=== PATIENT | male | born 1960 | race Caucasian/White ===

== ENCOUNTER 2023-09-24 10:50 | Outpatient (AMB) | payer MEDICARE, SELFPAY ==
--- NOTE | 2023-09-24 10:53 | HO.NEPHOV ---
HPI HPI Comments History of Present Illness Details Middle aged man with HTN and DM referred for CKD In Jun 2023, Cr was 1.4 and in Jul 2023 , cr was 1.38 No specific complaints today He has a h/o smoking in the past and has since quit [facility] Medical History (Updated 09/24/23 @ 11:14 by Yinka Bond MD) Hypertension High cholesterol Diabetes Family History Mother Diabetes Cancer Father Colon cancer Brother Diabetes Social History Alcohol intake: never Patient Tobacco Use Status: Never used Tobacco Vital Signs 09/24/23 10:54 Height 5 ft 7 in Weight 191 lb 6 oz BMI 30.0 BP 120/50 L Blood Pressure Location Lt brachial Position Sitting Pulse 58 Pulse Source Pulse Oximeter Pulse Oximetry (%) 98 Oxygen Delivery Method Room Air Physical Exam Vital Signs: Last Vital Signs Pulse 58 09/24/23 10:54 BP 120/50 L 09/24/23 10:54 Pulse Ox 98 09/24/23 10:54 Oxygen Delivery Method Room Air 09/24/23 10:54 BMI result Body Mass Index 30.0 Const General: comfortable Nutritional Appearance: well nourished Orientation/consciousness: patient oriented x3 HEENT Head: No normal to inspection Mouth: moist mucous membranes Neck Neck: Yes supple and Yes no JVD Resp Auscultation: clear to auscultation bilaterally, no rales and rub present Cardio Jugular venous distension: no JVD Palpation: no palpable S3 and no palpable S4 Heart sounds: no rubs GI Palpation (GI): Soft to palpation and nontender Percussion: No Fluid wave present General: Yes no CVA tenderness Back/Spine/Pelvis Back: no CVA tenderness Skin General skin exam: no rashes or lesions noted Neuro General: patient oriented x3 Extrem General: Yes no pedal edema and No clubbing Assessment & Plan Assessment & Plan (1) CKD (chronic kidney disease): Code(s): N18.9 - Chronic kidney disease, unspecified Plan Middle aged man with HTNa nd DM with CKD 3 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 Work up ordered including renal hollie=nogram and urine studies In the meantime, maintain BP< 130/80, And A1C < 7% Continue with ACEi Avoid nephrotoxins including NSAIDS Increase PO fluid intake May benefit from SGLT-2 inhibitors Orders: Orders UA and rflx microscopic Today N18.9 - Chronic kidney disease, unspecified Creatinine Urine Today N18.9 - Chronic kidney disease, unspecified Electrolytes Today N18.9 - Chronic kidney disease, unspecified Blood Urea Nitrogen Today N18.9 - Chronic kidney disease, unspecified Creatinine Today N18.9 - Chronic kidney disease, unspecified Calcium Today N18.9 - Chronic kidney disease, unspecified Total Protein Urine Random Today N18.9 - Chronic kidney disease, unspecified US renal BI Today N18.9 - Chronic kidney disease, unspecified Coding Level of Care Code New Pt Level 4 (76641) Diagnoses CKD (chronic kidney disease) N18.9 Results Reviewed Results Reviewed: Labd reviewed Nephrology Results: No Data to Display
[2023-09-24 10:54] VITALS: BP 120/50; PULSE 58; O2SAT 98
== END 2023-09-24 11:17 | disposition home or self-care (01) ==
PROVIDERS: PCP Psychiatry & Neurology Neurology; Visit Provider Internal Medicine Hypertension Specialist
DX: N18.9 Chronic kidney disease, unspecified (principal)
CPT/HCPCS: 99204

== ENCOUNTER → 2023-09-24 10:50 | Outpatient (BNVA) | payer MEDICARE, SELFPAY | PROVIDERS: PCP Psychiatry & Neurology Neurology; Visit Provider Internal Medicine Hypertension Specialist | DX: N18.9 Chronic kidney disease, unspecified (principal) | CPT/HCPCS: 99202 ==

== ENCOUNTER 2023-09-24 15:53 | Outpatient (REF) | payer MEDICARE, SELFPAY ==
[2023-09-24 18:12] LABS: Anion Gap 15 (12-20); Blood Urea Nitrogen 22 mg/dL (9-16); Calcium 9.6 mg/dL (8.4-10.2); Carbon Dioxide 25 mmol/L (22-29); Chloride 103 mmol/L (96-108); Estimated Glomerular Filt Rate 54; Potassium 4.4 mmol/L (3.3-5.1); Sodium 139 mmol/L (135-145)
[2023-09-24 18:18] LABS: Appearance Urine Clear; Color Urine Yellow; Glucose Urine UA Negative (Negative); Leukocyte Esterase Urine Negative (Negative); Nitrite Urine Negative (Negative); PH 5.5 (5.0-9.0); Specific Gravity - Urine 1.025 (1.005-1.025); Urine Blood Negative (Negative); Urine Ketones Negative (Negative); Urine Protein Negative (Neg-Trace)
[2023-09-24 19:07] LABS: Creatinine Urine 170.94 mg/dL; Total Protein Urine Random < 7 mg/dL (<12)
== END 2023-09-24 15:54 | disposition home or self-care (01) ==
LOC: HO.HKASLDS 15:53
PROVIDERS: Visit Provider Internal Medicine Hypertension Specialist
DX: N18.9 Chronic kidney disease, unspecified (principal)
CPT/HCPCS: 36415; 80051; 81003; 82310; 82565; 82570; 84156; 84520

== ENCOUNTER 2023-10-03 13:51 | Outpatient (REF) | payer MEDICARE, SELFPAY ==
--- NOTE | ~2023-10-03 | US_ITS ---
EXAMINATION: US RETROPERITONEAL LIMITED (RENAL ONLY) CLINICAL INFORMATION: Chronic kidney disease, unspecified. COMPARISON: None available. TECHNIQUE: Real-time imaging of the kidneys. Limited visualization due to bowel gas. FINDINGS: RIGHT KIDNEY: 11.1 x 5.0 x 5.6 cm (SAG x AP x TRV). No hydronephrosis. No renal calculi. Renal cortical thickness is normal. Limited visualization. LEFT KIDNEY: 11.1 x 6.3 x 5.3 cm (SAG x AP x TRV). No hydronephrosis. No renal calculi. Renal cortical thickness is normal. Limited visualization. US/US renal BI IMPRESSION: No hydronephrosis. No renal calculi.
== END 2023-10-03 13:52 | disposition home or self-care (01) ==
LOC: HO.HMGCX 13:51
PROVIDERS: PCP Internal Medicine; Visit Provider Internal Medicine Hypertension Specialist
DX: N18.9 Chronic kidney disease, unspecified (principal)
CPT/HCPCS: 76775

== ENCOUNTER 2023-10-15 11:07 | Outpatient (AMB) | payer MEDICARE, SELFPAY ==
[2023-10-15 11:12] VITALS: BP 138/62; PULSE 72; O2SAT 97
--- NOTE | 2023-10-15 11:12 | HO.NEPHOV_ITS ---
HPI HPI Comments History of Present Illness Details Middle aged man with HTN and DM referred for CKD In Jun 2023, Cr was 1.4 and in Jul 2023 , cr was 1.38 No specific complaints today He has a h/o smoking in the past and has since quit [facility] Medical History (Updated 09/24/23 @ 11:14 by Yinka Bond MD) Hypertension High cholesterol Diabetes Family History Mother Diabetes Cancer Father Colon cancer Brother Diabetes Social History Alcohol intake: never Patient Tobacco Use Status: Never used Tobacco Vital Signs 10/15/23 11:12 Height 57 ft Weight 191 lb 8 oz BMI 0.3 BP 138/62 Blood Pressure Location Lt brachial Position Sitting Pulse 72 Pulse Source Pulse Oximeter Pulse Oximetry (%) 97 Oxygen Delivery Method Room Air Physical Exam Vital Signs: Last Vital Signs Pulse 72 10/15/23 11:12 BP 138/62 10/15/23 11:12 Pulse Ox 97 10/15/23 11:12 Oxygen Delivery Method Room Air 10/15/23 11:12 BMI result Body Mass Index 0.3 Const General: comfortable Nutritional Appearance: well nourished Orientation/consciousness: patient oriented x3 HEENT Head: No normal to inspection Mouth: moist mucous membranes Neck Neck: Yes supple and Yes no JVD Resp Auscultation: clear to auscultation bilaterally, no rales and rub present Cardio Jugular venous distension: no JVD Palpation: no palpable S3 and no palpable S4 Heart sounds: no rubs GI Palpation (GI): Soft to palpation and nontender Percussion: No Fluid wave present General: Yes no CVA tenderness Back/Spine/Pelvis Back: no CVA tenderness Skin General skin exam: no rashes or lesions noted Neuro General: patient oriented x3 Extrem General: Yes no pedal edema and No clubbing Assessment & Plan Assessment & Plan (1) CKD (chronic kidney disease): Code(s): N18.9 - Chronic kidney disease, unspecified Plan Middle aged man with HTN and DM with CKD 3 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 No hydronephrosis. No renal calculi. Renal cortical thickness is normal. Limited visualization. LEFT KIDNEY: 11.1 x 6.3 x 5.3 cm (SAG x AP x TRV). No hydronephrosis. No renal calculi. Renal cortical thickness is normal. Limited visualization. US/US renal BI IMPRESSION: No hydronephrosis. No renal calculi. Nephrology Results: Sodium 139 mmol/L (135-145) 09/24/23 Potassium 4.4 mmol/L (3.3-5.1) 09/24/23 Chloride 103 mmol/L (96-108) 09/24/23 Carbon Dioxide 25 mmol/L (22-29) 09/24/23 BUN 22 mg/dL (9-16) H 09/24/23 Creatinine 1.32 mg/dL (0.5-1.4) 09/24/23 Calcium 9.6 mg/dL (8.4-10.2) 09/24/23 Urine Protein Negative mg/dL (Neg-Trace) 09/24/23 Urine Creatinine 170.94 mg/dL 09/24/23 Renal US 10/03/23
== END 2023-10-15 11:34 | disposition home or self-care (01) ==
PROVIDERS: PCP Internal Medicine; Visit Provider Internal Medicine Hypertension Specialist
DX: N18.9 Chronic kidney disease, unspecified (principal)
CPT/HCPCS: 99214

== ENCOUNTER → 2023-10-15 11:07 | Outpatient (BNVA) | payer MEDICARE, SELFPAY | PROVIDERS: PCP Internal Medicine; Visit Provider Internal Medicine Hypertension Specialist | DX: I12.9 Hypertensive chronic kidney disease with stage 1 through stage 4 chronic kidney disease, or unspecified chronic kidney disease (principal); E11.22 Type 2 diabetes mellitus with diabetic chronic kidney disease; N18.30 Chronic kidney disease, stage 3 unspecified | CPT/HCPCS: 99212 ==

== ENCOUNTER 2024-03-03 11:30 | Outpatient (AMB) | payer MEDICARE, SELFPAY ==
[2024-03-03 11:32] VITALS: BP 106/52; PULSE 66; O2SAT 97; BMI 26.9
--- NOTE | 2024-03-03 11:32 | HO.NEPHOV_ITS ---
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 Required: No Accompanied by: Self / Same As Patient Allergies No Known Allergies Allergy (Verified 03/03/24 11:34) Medication List - Last Reconciled 03/03/24 by iYnka Bond MD atorvastatin 40 mg PO DAILY bimatoprost 0.01% (Lumigan) drps ophthalmic (eye) budesonide-formoterol 160-4.5 mcg/actuation (Symbicort) 2 puffs inhalation BID famotidine 40 mg PO DAILY lisinopril-hydrochlorothiazide 20-25 mg 1 tab PO DAILY metformin 1,000 mg PO BID metoprolol succinate ER 25 mg PO DAILY pantoprazole 40 mg PO DAILY semaglutide (Ozempic) mg subcut tamsulosin 0.8 mg PO DAILY HPI Comments Details: Middle aged man with HTN and DM referred for CKD In Jun 2023, Cr was 1.4 and in Jul 2023 , cr was 1.38 No specific complaints today He has a h/o smoking in the past and has since quit 02/21/24 Off Glburide Now on Ozempic Lost 19 pounds Feels dizzy when he stands [facility] Medical History (Updated 09/24/23 @ 11:14 by Yinka Bond MD) Hypertension High cholesterol Diabetes Family History Mother Diabetes Cancer Father Colon cancer Brother Diabetes Social History Alcohol intake: never Patient Tobacco Use Status: Never used Tobacco Physical Exam Vital Signs: Last Vital Signs Pulse 66 03/03/24 11:32 BP 90/60 03/03/24 11:48 Pulse Ox 97 03/03/24 11:32 Oxygen Delivery Method Room Air 03/03/24 11:32 BMI result Body Mass Index 26.9 Const General: comfortable Nutritional Appearance: well nourished Orientation/consciousness: patient oriented x3 HEENT Head: No normal to inspection Mouth: moist mucous membranes Neck Neck: Yes supple and Yes no JVD Resp Auscultation: clear to auscultation bilaterally and no rales Cardio Jugular venous distension: no JVD Palpation: no palpable S3 and no palpable S4 Heart sounds: no rubs GI Palpation (GI): Soft to palpation and nontender Percussion: No Fluid wave present General: Yes no CVA tenderness Back/Spine/Pelvis Back: no CVA tenderness Skin General skin exam: no rashes or lesions noted Neuro General: patient oriented x3 Extrem General: Yes no pedal edema and No clubbing Results Reviewed Nephrology Results: Sodium 139 mmol/L (135-145) 09/24/23 Potassium 4.4 mmol/L (3.3-5.1) 09/24/23 Chloride 103 mmol/L (96-108) 09/24/23 Carbon Dioxide 25 mmol/L (22-29) 09/24/23 BUN 22 mg/dL (9-16) H 09/24/23 Creatinine 1.32 mg/dL (0.5-1.4) 09/24/23 Calcium 9.6 mg/dL (8.4-10.2) 09/24/23 Urine Protein Negative mg/dL (Neg-Trace) 09/24/23 Urine Creatinine 170.94 mg/dL 09/24/23 Renal US 10/03/23 Assessment & Plan Assessment & Plan (1) CKD (chronic kidney disease): Code(s): N18.9 - Chronic kidney disease, unspecified Category: Medical Plan Middle aged man with HTN and DM with CKD 3 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
[2024-03-03 11:48] VITALS: BP 90/60
== END 2024-03-03 11:53 | disposition home or self-care (01) ==
PROVIDERS: PCP Internal Medicine; Visit Provider Internal Medicine Hypertension Specialist
DX: N18.9 Chronic kidney disease, unspecified (principal)
CPT/HCPCS: 99214

== ENCOUNTER → 2024-03-03 11:30 | Outpatient (BNVA) | payer MEDICARE, SELFPAY | PROVIDERS: PCP Internal Medicine; Visit Provider Internal Medicine Hypertension Specialist | DX: N18.9 Chronic kidney disease, unspecified (principal) | CPT/HCPCS: 99212 ==

== ENCOUNTER 2024-06-09 10:43 | Outpatient (REF) | payer MEDICARE, SELFPAY ==
[2024-06-09 14:56] LABS: Appearance Urine Clear; Color Urine Yellow; Glucose Urine UA Negative (Negative); Leukocyte Esterase Urine Negative (Negative); Nitrite Urine Negative (Negative); PH 5.5 (5.0-9.0); Urine Blood Negative (Negative); Urine Ketones Negative (Negative); Urine Protein Negative (Neg-Trace)
[2024-06-09 16:18] LABS: Anion Gap 12 (12-20); Blood Urea Nitrogen 17 mg/dL (9-16); Calcium 9.3 mg/dL (8.4-10.2); Carbon Dioxide 30 mmol/L (22-29); Chloride 103 mmol/L (96-108); Estimated Glomerular Filt Rate > 60; Glucose Random 123 mg/dL (60-115); Sodium 141 mmol/L (135-145)
[2024-06-09 16:30] LABS: Creatinine Urine 139.04 mg/dL; Total Protein Urine Random < 7 mg/dL (<12)
== END 2024-06-09 10:44 | disposition home or self-care (01) ==
LOC: HO.HKASLDS 10:43
PROVIDERS: Visit Provider Internal Medicine Hypertension Specialist
DX: I10 Essential (primary) hypertension (principal); N18.9 Chronic kidney disease, unspecified
CPT/HCPCS: 36415; 80048; 81003; 82570; 84156

== ENCOUNTER 2024-06-16 11:14 | Outpatient (AMB) | payer MEDICARE, SELFPAY ==
[2024-06-16 11:13] VITALS: BP 132/52; PULSE 64; O2SAT 97; BMI 27.1
--- NOTE | 2024-06-16 11:13 | HO.NEPHOV ---
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 Required: No Accompanied by: Self / Same As Patient Allergies No Known Allergies Allergy (Verified 07/01/24 11:39) Medication List - Last Reconciled 06/16/24 by Yinka Bond MD atorvastatin 40 mg PO DAILY bimatoprost 0.01% (Lumigan) drps ophthalmic (eye) budesonide-formoterol 160-4.5 mcg/actuation (Symbicort) 2 puffs inhalation BID famotidine 40 mg PO DAILY lisinopril 20 mg PO DAILY metformin 1,000 mg PO BID metoprolol succinate ER 25 mg PO DAILY pantoprazole 40 mg PO DAILY semaglutide (Ozempic) mg subcut tamsulosin 0.8 mg PO DAILY HPI Comments Details: Middle aged man with HTN and DM referred for CKD In Jun 2023, Cr was 1.4 and in Jul 2023 , cr was 1.38 No specific complaints today He has a h/o smoking in the past and has since quit 02/21/24 Off Glburide Now on Ozempic Lost 19 pounds Feels dizzy when he stands [facility] Medical History (Updated 06/17/24 @ 10:35 by Alisa Coombs MD) Dry mouth, unspecified Hypertension High cholesterol Diabetes Family History Mother Diabetes Cancer Father Colon cancer Brother Diabetes Social History Alcohol intake: never Patient Tobacco Use Status: Never used Tobacco Physical Exam Vital Signs: Last Vital Signs Pulse 64 06/16/24 11:13 BP 120/60 06/16/24 11:23 Pulse Ox 97 06/16/24 11:13 Oxygen Delivery Method Room Air 06/16/24 11:13 BMI result Body Mass Index 27.1 Results Reviewed Nephrology Results: Hgb 14.8 g/dl (14.0-18.0) 06/17/24 WBC 9.2 X10*3/uL (4.8-10.8) 06/17/24 Plt Count 255 X10*3/uL (160-400) 06/17/24 Sodium 142 mmol/L (135-145) 06/17/24 Potassium 4.5 mmol/L (3.3-5.1) 06/17/24 Chloride 105 mmol/L (96-108) 06/17/24 Carbon Dioxide 29 mmol/L (22-29) 06/17/24 BUN 14 mg/dL (9-16) 06/17/24 Creatinine 1.07 mg/dL (0.5-1.4) 06/17/24 Calcium 10.0 mg/dL (8.4-10.2) 06/17/24 Urine Protein Negative mg/dL (Neg-Trace) 06/09/24 Urine Creatinine 139.04 mg/dL 06/09/24 Renal US 10/03/23 Assessment & Plan Assessment & Plan (1) CKD (chronic kidney disease): Code(s): N18.9 - Chronic kidney disease, unspecified Category: Medical Plan Middle aged man with HTN and DM with CKD 3 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
[2024-06-16 11:23] VITALS: BP 120/60
== END 2024-06-16 11:31 | disposition home or self-care (01) ==
PROVIDERS: PCP Internal Medicine; Visit Provider Internal Medicine Hypertension Specialist
DX: N18.9 Chronic kidney disease, unspecified (principal)
CPT/HCPCS: 99214

== ENCOUNTER → 2024-06-16 11:14 | Outpatient (BNVA) | payer MEDICARE, SELFPAY | PROVIDERS: PCP Internal Medicine; Visit Provider Internal Medicine Hypertension Specialist | DX: E11.22 Type 2 diabetes mellitus with diabetic chronic kidney disease (principal); I12.9 Hypertensive chronic kidney disease with stage 1 through stage 4 chronic kidney disease, or unspecified chronic kidney disease; N18.30 Chronic kidney disease, stage 3 unspecified; Z87.891 Personal history of nicotine dependence | CPT/HCPCS: 99212 ==

== ENCOUNTER 2024-06-17 09:55 | Outpatient (REF) | payer MEDICARE, SELFPAY ==
[2024-06-17 11:09] LABS: MANUAL DIFF FLAG NO
[2024-06-17 12:00] LABS: Basophils Percent Auto 0.3 % (0-2); Eosinophils Absolute Auto 0.9 X10*3/uL (0.0-0.4); Eosinophils Percent Auto 9.3 % (0-4); Hematocrit 43.3 % (42.0-52.0); Hemoglobin 14.8 g/dl (14.0-18.0); Imm Gran Abs Auto 0.03 X10*3/uL (0.00-0.03); Imm Gran Pct Auto 0.3 % (0.0-0.4); Lymphocytes Absolute Auto 2.4 X10*3/uL (1.2-4.9); Lymphocytes Percent Auto 26.5 % (20-40); Mean Corpuscular HGB Conc 34.2 g/dl (31.0-36.0); Mean Corpuscular Hemoglobin 31.1 pg (27.0-33.0); Mean Platelet Volume 9.8 fL (9.4-12.4); Monocytes Absolute Auto 0.6 X10*3/uL (0.1-1.2); Monocytes Percent Auto 6.1 % (2-11); Neutrophils Absolute Auto 5.3 x10*3/uL (2.0-8.3); Neutrophils Percent Auto 57.5 % (45-73); Platelet Count 255 X10*3/uL (160-400); Red Blood Count 4.76 X10*6/uL (4.60-5.80); Red Cell Distribution Width 12.1 % (11.0-16.0); White Blood Count 9.2 X10*3/uL (4.8-10.8)
[2024-06-17 12:27] LABS: Rheumatoid Factor < 13.0 IU/mL (<15.0)
[2024-06-17 12:33] LABS: Alanine Aminotransferase 15 U/L (0-40); Albumin Level 4.5 g/dL (3.5-5.0); Alkaline Phosphatase 75 U/L (39-117); Anion Gap 13 (12-20); Aspartate Amino Transferase 13 U/L (5-37); Bilirubin Total 0.6 mg/dL (0.0-1.0); Blood Urea Nitrogen 14 mg/dL (9-16); C Reactive Protein < 0.04 mg/dL (< or = 0.50); Carbon Dioxide 29 mmol/L (22-29); Chloride 105 mmol/L (96-108); Estimated Glomerular Filt Rate > 60; Glucose Random 85 mg/dL (60-115); Potassium 4.5 mmol/L (3.3-5.1); Sodium 142 mmol/L (135-145); Total Protein 7.3 g/dL (6.5-8.0)
[2024-06-17 12:45] LABS: Erythrocyte Sedimentation Rate 2 MM/HR (0-15)
[2024-06-18 11:24] LABS: Complement C3 136 mg/dL (82-185)
[2024-06-22 07:14] LABS: Antibody to SS-A Antigen <1.0 NEG AI (<1.0 NEG); Antibody to SS-B Antigen <1.0 NEG AI (<1.0 NEG)
[2024-06-22 08:14] LABS: Anti Nuclear Antibody Screen NEGATIVE (NEGATIVE)
== END 2024-06-17 09:56 | disposition home or self-care (01) ==
LOC: HO.LAB 09:55
PROVIDERS: PCP Internal Medicine; Visit Provider Student in an Organized Health Care Education/Training Program
DX: R68.2 Dry mouth, unspecified (principal); I12.9 Hypertensive chronic kidney disease with stage 1 through stage 4 chronic kidney disease, or unspecified chronic kidney disease; N18.9 Chronic kidney disease, unspecified
CPT/HCPCS: 36415; 80053; 85025; 85652; 86038; 86140; 86160; 86235; 86431; 99202

== ENCOUNTER 2024-06-17 09:55 | Outpatient (AMB) | payer MEDICARE, SELFPAY ==
[2024-06-17 10:06] VITALS: BP 120/60; PULSE 71; O2SAT 100; BMI 26.9
--- NOTE | 2024-06-17 10:06 | A.OFFVIS_ITS ---
Vital Signs 06/17/24 10:06 Height 5 ft 7 in Weight 172 lb BMI 26.9 BP 120/60 Blood Pressure Location Lt brachial Position Sitting Pulse 71 Pulse Source Pulse Oximeter Pulse Oximetry (%) 100 Oxygen Delivery Method Room Air Intake Visit Reasons: dry mouth Allergies No Known Allergies Allergy (Verified 06/16/24 11:15) Medication List - Last Reconciled 06/17/24 by Alisa Coombs MD atorvastatin 40 mg PO DAILY bimatoprost 0.01% (Lumigan) drps ophthalmic (eye) budesonide-formoterol 160-4.5 mcg/actuation (Symbicort) 2 puffs inhalation BID famotidine 40 mg PO DAILY lisinopril 20 mg PO DAILY metformin 1,000 mg PO BID metoprolol succinate ER 25 mg PO DAILY pantoprazole 40 mg PO DAILY semaglutide (Ozempic) mg subcut tamsulosin 0.8 mg PO DAILY HPI Comments Details: Patient is a 64-year-old gentleman with controlled type 2 diabetes (last A1c 6.2 as per patient), hypertension, hyperlipidemia, coronary artery disease, psoriasis and GERD on 2 acid suppressants. He presents for evaluation of dry mouth and dry eyes. Patient states that he has been noticing dry mouth more so than dry eyes for the past 2 years. He particularly notes this when he wakes up in the middle of the night and his mouth feels dry and has a sour taste, he also notices this when he is doing a lot of talking and he feels like he has to drink more water and normal. He denies any difficulty with eating dry food were dry crackers. With respect to his eyes he denies grainy sensation, inability to make tears. Denies history of facial swelling or lymphadenopathy. Denies history of joint pain or stiffness to hands. Denies oral/nasal ulcers, alopecia, Raynaud's. No family history of any autoimmune disease. REPLACED BY [facility] Medical History (Updated 06/17/24 @ 10:35 by Alisa Coombs MD) Dry mouth, unspecified Hypertension High cholesterol Diabetes Family History Mother Diabetes Cancer Father Colon cancer Brother Diabetes Social History Alcohol intake: never Patient Tobacco Use Status: Never used Tobacco Review of Systems Const Details: Review of Systems Constitutional: Denies fever, chills, weight loss ENT: Dry eyes and dry mouth GI: Denies nausea, vomiting, diarrhea, abdominal pain, change in BM Pulm: Denies SOB, EDWARDS, hemoptysis, wheezing Cards: Denies chest pain, palpitations Skin: Denies Raynaud's, rash, nail changes, photosensitivity, 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 ?Gait normal. Constitutional: ?Mucous membranes pink and moist patient alert and cooperative. HEENT: ?Conjunctiva and sclera clear. ?Pupils equal round and reactive to light. ?No lymphadenopathy. Adequate salivary pool noted. No excessive dental caries. Resp: ?Normal respiratory effort and able to speak in complete sentences. ?Clear to auscultation bilaterally. ?No crackles, rales, rhonchi, wheezes heard. Cards: ?Regular rate and rhythm. ?S1 and S2 heard no murmurs. ?Radial pulses intact bilaterally MSK: ?No deformity, swelling, abnormalities noted to bilateral hands. ?No evidence of synovitis. ?Heberden's nodes noted to bilateral hands at the PIP throughout. Able to move all joints with full range of motion, without weber itation. Results Reviewed Results Reviewed: Results reviewed. Laboratory Tests 06/09/24 10:40 Sodium 141 Potassium 4.0 Chloride 103 Carbon Dioxide 30 H BUN 17 H Creatinine 1.07 Assessment & Plan Assessment & Plan (1) Dry mouth, unspecified: Code(s): R68.2 - Dry mouth, unspecified Category: Medical Plan: #Dry eyes and Dry mouth Patient presenting with dry eyes and dry mouth for evaluation of Sjogren's syndrome. His main complaint is his dry mouth. The dry mouth seems to be mostly at night and when he talks during the day. Low suspicion for Sjogren's disease at this time given his good salivary pool, lack of parotid swelling, lack of features of extraglandular Sjogren's, normal tongue architecture, adequate dentition. We will still check labs including MAGNUS, SSA/SSB, complement, rheumatoid factor. I discussed with him other causes of his dry mouth which can include medications such as antihistamines (which he can get over the counter including Benadryl and the cough and cold preparations), famotidine, GERD itself can cause dry mouth and bitter taste in the mouth due to the acid production, psoriasis can be associated with dry mouth, diabetes can also be associated with a dry mouth although this is usually an uncontrolled diabetes. We will not pursue salivary gland biopsy at this time given low suspicion Plan I spent [35] minutes reviewing the record and labs, seeing the patient, discussing the treatment plan and documenting in the medical record Orders: Orders Complement C4 Today I10 - Essential (primary) hypertension, N18.9 - Chronic kidney disease, unspecified, R68.2 - Dry mouth, unspecified Rheumatoid Factor Today I10 - Essential (primary) hypertension, N18.9 - Chronic kidney disease, unspecified, R68.2 - Dry mouth, unspecified C Reactive Protein Today I10 - Essential (primary) hypertension, N18.9 - Chr onic kidney disease, unspecified, R68.2 - Dry mouth, unspecified MAGNUS Reflex Titer and Pattern Today R68.2 - Dry mouth, unspecified Sjogren's Antibodies Today R68.2 - Dry mouth, unspecified Complement C3 Today I10 - Essential (primary) hypertension, N18.9 - Chronic kidney disease, unspecified, R68.2 - Dry mouth, unspecified Erythrocyte Sedimentation Rate Today I10 - Essential (primary) hypertension, N18.9 - Chronic kidney disease, unspecified, R68.2 - Dry mouth, unspecified Complete Blood Count Auto Diff Today I10 - Essential (primary) hypertension, N18.9 - Chronic kidney disease, unspecified, R68.2 - Dry mouth, unspecified Comprehensive Met. Panel Today I10 - Essential (primary) hypertension, N18.9 - Chronic kidney disease, unspecified, R68.2 - Dry mouth, unspecified Coding Level of Care Code New Pt Level 3 (43357) Diagnoses Dry mouth, unspecified R68.2
== END 2024-06-17 10:42 | disposition home or self-care (01) ==
PROVIDERS: PCP Internal Medicine; Visit Provider Student in an Organized Health Care Education/Training Program
DX: R68.2 Dry mouth, unspecified (principal)
CPT/HCPCS: 99203

== ENCOUNTER 2024-07-01 11:25 | Outpatient (AMB) | payer MEDICARE, SELFPAY ==
[2024-07-01 11:38] VITALS: BP 120/58; PULSE 67; O2SAT 98; BMI 26.8
--- NOTE | 2024-07-01 11:38 | A.OFFVIS_ITS ---
Vital Signs 07/01/24 11:38 Height 5 ft 7 in Weight 171 lb 1.259 oz BMI 26.8 BP 120/58 L Blood Pressure Location Lt brachial Position Sitting Pulse 67 Pulse Source Pulse Oximeter Pulse Oximetry (%) 98 Oxygen Delivery Method Room Air Intake Visit Reasons: follow up labs and dry mouth/cm Intake Note: Patient presents today for follow up on labs and dry mouth. He was last seen on 06/17/[address] Coombs. Allergies No Known Allergies Allergy (Verified 07/01/24 11:39) Medication List - Last Reconciled 07/01/24 by Alisa Coombs MD atorvastatin 40 mg PO DAILY bimatoprost 0.01% (Lumigan) drps ophthalmic (eye) budesonide-formoterol 160-4.5 mcg/actuation (Symbicort) 2 puffs inhalation BID famotidine 40 mg PO DAILY lisinopril 20 mg PO DAILY metformin 1,000 mg PO BID metoprolol succinate ER 25 mg PO DAILY pantoprazole 40 mg PO DAILY semaglutide (Ozempic) mg subcut tamsulosin 0.8 mg PO DAILY HPI Comments Details: Patient is a 64-year-old gentleman with controlled type 2 diabetes (last A1c 6.2 as per patient), hypertension, hyperlipidemia, coronary artery disease, psoriasis and GERD on 2 acid suppressants. He presents for follow up of his evaluation of dry eyes and dry mouth. Interval History: Patient established care 06/17/2024. Complaining of dry mouth for the past 2 years. Particularly at night when he wakes up. At that evaluation there were no signs or symptoms consistent with Sjogren's syndrome. However serologies were checked. The serologies were negative. I recommended using sour candies to help with increasing saliva production. Today patient is the same. Rheumatologic History: Presents for evaluation of dry eyes and dry mouth. Mainly dry mouth. 06/17/2024. Serology testing negative. Low suspicion for Sjogren's syndrome. Current Rheumatology Medication(s): - FOR[facility]LY [facility], [facility] Medical History (Updated 06/17/24 @ 10:35 by Alisa Coombs MD) Dry mouth, unspecified Hypertension High cholesterol Diabetes Family History Mother Diabetes Cancer Father Colon cancer Brother Diabetes Social History Alcohol intake: never Patient Tobacco Use Status: Never used Tobacco Review of Systems Const Details: Review of Systems Constitutional: Denies fever, chills, weight loss ENT: Denies vision changes, eye pain or eye redness, dental caries GI: Denies nausea, vomiting, diarrhea, abdominal pain, change in BM Pulm: Denies SOB, EDWARDS, hemoptysis, wheezing Cards: Denies chest pain, palpitations Skin: Denies Raynaud's, rash, nail changes, photosensitivity, MEDICAL ASSISTANT CARDIOLOGY: Denies headaches, weakness, paresthesias, recurrent falls MSK: as per HPI All other systems reviewed and are unremarkable except noted above Physical Exam Vital Signs: Last Vital Signs Pulse 67 07/01/24 11:38 BP 120/58 L 07/01/24 11:38 Pulse Ox 98 07/01/24 11:38 Oxygen Delivery Method Room Air 07/01/24 11:38 BMI result Body Mass Index 26.8 Physical Examination Patient well appearing and in no apparent painful distress Able to rise from chair without support. ?Gait normal. Constitutional Mucous membranes pink and moist patient alert and cooperative HEENT Conjunctiva and sclera clear. ?Pupils equal round and reactive to light. ?No lymphadenopathy. ?Normal dentition. Respiratory System Normal respiratory effort and able to speak in complete sentences. ?Clear to auscultation bilaterally. ?No crackles, rales, rhonchi, wheezes heard. Cardiac System Regular rate and rhythm. ?S1 and S2 heard no murmurs. ?Radial pulses intact bilaterally MSK No deformity, swelling, abnormalities noted to bilateral hands. ?No evidence of synovitis. ?Able to move all joints with full range of motion, without limitation. Hands:.??Normal pain-free range of motion without tenderness, swelling, increased warmth or erythema. Able to make a full fist and has a good corner trimmer operator strength. Wrists: Normal pain-free range of motion without tenderness, swelling, increased warmth or erythema. Elbows: Full range of motion without pain. No tenderness, weakness, swelling, increased warmth or erythema. Shoulders: Full range of motion without pain. No tenderness, weakness, swelling, increased warmth or erythema. Hips: Full range of motion without pain. Hip bursa:.??No tenderness. Knees:.???Normal pain-free range of motion without tenderness, swelling, increased warmth or erythema.??There is no effusion or crepitation. tenderness to right lateral, area of fibia head Ankles:.??Normal pain-free range of motion without tenderness, swelling, increased warmth or erythema. Feet:.??Normal pain-free range of motion without tenderness, swelling, increased warmth or erythema. Tender points:??No tenderness to digital palpation at the occiput, trapezius, second rib, lateral epicondyle, knees, greater trochanter bilaterally, and left gluteal. Results Reviewed Results Reviewed: Laboratory Tests 06/09/24 06/17/24 10:40 11:00 WBC 9.2 RBC 4.76 Hgb 14.8 Hct 43.3 Plt Count 255 ESR 2 Sodium 141 142 Potassium 4.0 4.5 Chloride 103 105 Carbon Dioxide 30 H 29 BUN 17 H 14 Creatinine 1.07 1.07 C-Reactive Protein < 0.04 Rheumatoid Factor < 13.0 MAGNUS Screen NEGATIVE SS-A/Ro Antibody <1.0 NEG SS-B/La Antibody <1.0 NEG Complement C3 136 Complement C4 27 Assessment & Plan Assessment & Plan (1) Dry mouth, unspecified: Code(s): R68.2 - Dry mouth, unspecified Category: Medical Plan: #Dry eyes and Dry mouth Patient presenting with dry eyes and dry mouth for evaluation of Sjogren's syndrome. His main complaint is his dry mouth. The dry mouth seems to be mostly at night and when he talks during the day. Low suspicion for Sjogren's disease at this time given his good salivary pool, lack of parotid swelling, lac k of features of extraglandular Sjogren's, normal tongue architecture, adequate dentition. Labs including MAGNUS, SSA/SSB, complement, RF were negative. I discussed with him other causes of his dry mouth which can include medications such as antihistamines (which he can get over the counter including Benadryl and the cough and cold preparations), famotidine, GERD itself can cause dry mouth and bitter taste in the mouth due to the acid production, psoriasis can be associated with dry mouth, diabetes can also be associated with a dry mouth although this is usually an uncontrolled diabetes. We will not pursue salivary gland biopsy at this time given low suspicion Plan I spent 15 minutes reviewing the record and labs, seeing the patient, discussing the treatment plan and documenting in the medical record Coding Level of Care Code Est Pt Level 2 (67753) Diagnoses Dry mouth, unspecified R68.2
== END 2024-07-01 12:36 | disposition home or self-care (01) ==
PROVIDERS: PCP Internal Medicine; Visit Provider Student in an Organized Health Care Education/Training Program
DX: R68.2 Dry mouth, unspecified (principal)
CPT/HCPCS: 99212

== ENCOUNTER → 2024-07-01 11:25 | Outpatient (BNVA) | payer MEDICARE, SELFPAY | PROVIDERS: PCP Internal Medicine; Visit Provider Student in an Organized Health Care Education/Training Program | DX: R68.2 Dry mouth, unspecified (principal); K21.9 Gastro-esophageal reflux disease without esophagitis; Z79.899 Other long term (current) drug therapy | CPT/HCPCS: 99212 ==

== ENCOUNTER 2024-09-28 10:33 | Outpatient (REF) | payer MEDICARE, SELFPAY ==
--- OUTSIDE RECORDS SUMMARY | 2024-09-28 12:19 | XMS_ITS ---
Author Organization [facility], Address [address] [place] [address] Care Team Providers Care Granulating Blender Name Role Phone Genny Gray [phone] ALLERGIES, ADVERSE REACTIONS, ALERTS Substance Code Code System Type Reaction Severity Status Start Date End Date No known drug allergies RxNorm Other substance allergy () 1 No known allergies RxNorm Other substance allergy () 1 No known non-drug allergies RxNorm Other substance luis rgy () 1 MEDICATIONS Medication Code Code System Start Date Stop Date Route Dosage Directions Fill Instructions glipizide RxNorm 2 GLYBURIDE 5 MG TABLET RxNorm 3 METOPROLOL ER 25MG TAB RxNorm 11/19/2022 1 VENTOLIN HFA AER RxNorm 3 2 atorvastatin RxNorm 2 metformin RxNorm 2 prednisone 746800 RxNorm 2 oral 5 azithromycin 548062 RxNorm 04/21/2023 oral 1 azithromycin 459171 RxNorm 09/17/2023 oral 1 benzonatate 162463 RxNorm 09/17/2023 oral 1 lisinopril RxNorm 2 prednisone 375934 RxNorm 2 09/29/19 22 oral 2 prednisone 251351 RxNorm 04/21/2023 oral 2 PROBLEMS Problem Name Code Code System Start Date End Date Stat us Diabetes, Type 2 54831556 [facility] 09/24/2021 Act heather Hypertension 08138139 [facility] 09/24/2021 Active Hyperlipidemia 43997186 [facility] 09/24/2021 Activ e Idiopathic urticaria 70481738 [facility] 09/24/2021 Inactive Rash, nonspecific skin eruption 825489671 [facility] 2 Inactive Emphysema, unspecified 31455698 [facility] Active Acute cough 50270940 [facility] 09/17/2023 Active ENCOUNTERS Encounter Diagnosis Code Code System Date Stat us Emphysema, unspecified 39775034 [facility] 09/17/2023 Ac tive Acute cough 62690092 [facility] 09/17/2023 Active IMMUNIZATIONS Vaccine Code Code System Vaccine Name Date Status Lot Number Construction Electrician Name Additional Notes CVX [id number] 09/24/19 22 Completed [id number] [employer] VITAL SIGNS Code Code System Vitals Name Date Value and Un its 8462-4 [facility] Blood Pressure-Diastolic 09/17/2023 74 mmHg 8480-6 [facility] Blood Pressure-Systolic 09/17/2023 1 34 mmHg 8867-4 [facility] Heart Rate 09/17/2023 71 /min 9279-1 Loinc Respiratory Rate 09/17/2023 12 /min 8310-5 Loinc Body Temperature 09/17/2023 98.3 F 23290-0 [facility] Oxygen Saturation 09/17/2023 97 % SOCIAL HISTORY * None PROCEDURES * None MEDICAL EQUIPMENT * Patient has no history of implantable devices ASSESSMENT Assessment Take the antibiotic as presc ribed.Take the cough medication as prescribed.Use your albuterol inhaler 2 puffs every 4-6 hours as needed for cough/wheezing.I would recommend using [id number]-[id number] [place] mist nasal saline to irrigate the nose and sinuses.Warm tea with honey can be helpful.If there is any abnormality seen on the x-ray that requires changes in treatment we will contact you within the next few hours.Please arrange follow-up with your primary care doctor if symptoms do not improve/resolve.If symptoms worsen or you develop a fever please be reevaluated immediately or go to the emergency room TREATMENT PLAN Type Description Date MEDICATION Take 09/17/2023 MEDICATION Take 09/17/2023 APPOINTMENT If not feeling krzysztof r in 3 day(s), please see your primary care physician. If you do not have a primary care physician, please return to this clinic. 09/17/2023 Lab Tests None GOALS * None HEALTH CONCERNS * No Health Concerns FUNCTIONAL AND COGNITIVE STATUS * None CONSULTATION NOTES * None DISCHARGE SUMMARY NOTES * None HISTORY AND PHYSICAL NOTES * None IMAGING NOTES * /Eastern History: Cough-Chest: The patient presents with a chief complaint of cough of the chest since 2 weeks ago. It has the following quality: productive of sputum. The patient also reports congestion as an abnormal symptom related to the complaint.FRONTAL AND LATERAL CXRREFERENCES: DX - CHEST 2 VIEWS, FRONTAL/LATERAL - 04/21/23 14:34 EDT FINDINGS:Cardiac and mediastinal contours are within expected limits. The thoracic aorta is atherosclerotic and tortuous. There is suggestion of bilateral perihilar fullness with minimal peribronchial thickening. No confluent airspace opacities are identified. No pleural effusions. No pneumothorax.Multilevel thoracic spondylosis. IMPRESSION:Findings suggestive of reactive airways. LABORATORY REPORT NARRATIVE NOTES * None PATHOLOGY REPORT NARRATIVE NOTES * None PROGRESS NOTES * None
--- OUTSIDE RECORDS SUMMARY | 2024-09-28 12:19 | XMS_ITS ---
Author Organization [facility] Address [address] [place] [address] Care Team Providers Care Pharmacy Cashier Name Role Phone Radha Baron Unavailable [phone] ALLERGIES, ADVERSE REACTIONS, ALERTS Substance Code Code System Type Reaction Severity Status Start Date End Date No known drug allergies RxNorm Other substance allergy () 1 No known non-drug allergies RxNorm Other substance luis rgy () 1 No known allergies RxNorm Other substance allergy () 1 MEDICATIONS Medication Code Code System Start Date Stop Date Route Dosage Directions Fill Instructions glipizide RxNorm 2 GLYBURIDE 5 MG TABLET RxNorm 3 METOPROLOL ER 25MG TAB RxNorm 11/19/2022 1 VENTOLIN HFA AER RxNorm 3 2 atorvastatin RxNorm 2 metformin RxNorm 2 prednisone 978649 RxNorm 2 oral 5 azithromycin 819317 RxNorm 04/21/2023 oral 1 azithromycin 292070 RxNorm 09/17/2023 oral 1 benzonatate 672343 RxNorm 09/17/2023 oral 1 lisinopril RxNorm 2 prednisone 528651 RxNorm 2 09/29/19 22 oral 2 prednisone 821909 RxNorm 04/21/2023 oral 2 PROBLEMS Problem Name Code Code System Start Date End Date Stat us Diabetes, Type 2 82599109 [facility] 09/24/2021 Act heather Hypertension 06486815 [facility] 09/24/2021 Active Hyperlipidemia 76583897 [facility] 09/24/2021 Activ e Idiopathic urticaria 94086535 [facility] 09/24/2021 Inactive Rash, nonspecific skin eruption 136294032 [facility] 2 Inactive Emphysema, unspecified 80889802 [facility] Active Acute cough 55883181 [facility] 09/17/2023 Active ENCOUNTERS Encounter Diagnosis Code Code System Date Stat us Chronic obstructive pulmonar y disease with (acute) lower respiratory infection 424369100 [facility] 04/21/2023 Active IMMUNIZATIONS Vaccine Code Code System Vaccine Name Date Status Lot Number Senior Stock Plan Administrator Name Additional Notes CVX FluBLOK 09/24/19 22 Completed [id number] [employer] VITAL SIGNS Code Code System Vitals Name Date Value and Un its 8462-4 [facility] Blood Pressure-Diastolic 04/21/2023 72 mmHg 8480-6 [facility] Blood Pressure-Systolic 04/21/2023 1 43 mmHg 8867-4 [facility] Heart Rate 04/21/2023 54 /min 9279-1 [facility] Respiratory Rate 04/21/2023 16 /min 8310-5 Loinc Body Temperature 04/21/2023 98.2 F 67325-4 [facility] Oxygen Saturation 04/21/2023 98 % SOCIAL HISTORY * None PROCEDURES * None RESULTS Test Code Code System Description Result Value Date Ref erence Range [facility] SARS-CoV-2 Not Detected 04/21/2023 Not De tected [facility] Flu A Not Detected 04/21/2023 Not Det ected [facility] Flu B Not Detected 04/21/2023 Not Det ected MEDICAL EQUIPMENT * Patient has no history of implantable devices ASSESSMENT Assessment Take the antibiotics and pre dnisone as prescribed for the full duration of treatment. Continue using your albuterol inhaler. Follow-up with your primary care doctor soon as possible. Go to the emergency department for any new or worsening symptoms such as increasing shortness of breath or difficulty breathing TREATMENT PLAN Type Description Date MEDICATION Take 250 mg tablet 04/21/2023 MEDICATION Take 20 mg tablet 04/21/2023 APPOINTMENT If not feeling krzysztof r in 3 day(s), please see your primary care physician. If you do not have a primary care physician, please return to this clinic. 04/21/2023 Labs Tests Test Name Code Code System Date SARS-CoV-2 & Flu A/B Multipl ex Assay, Amplified Probe Molecular RT-PCR / NAAT 46276 CPT 04/21/2023 GOALS * None HEALTH CONCERNS * No Health Concerns FUNCTIONAL AND COGNITIVE STATUS * None CONSULTATION NOTES * None DISCHARGE SUMMARY NOTES * None HISTORY AND PHYSICAL NOTES * Reason for visit - Illness IMAGING NOTES * /Eastern History: Cough-Chest: The patient presents with a chief complaint of constant (but worse at times) cough of the chest since 5 days ago. It has the following quality: nonproductive. The problem is made worse by deep breathing. The patient also reports congestion as an abnormal symptom related to the complaint.ExaminationDescription: Chest xray, frontal and lateral viewsComparisons:None provided. FindingsThere is crowding of the mediastinal structures and basilar vascular markings secondary to the low volume nature of the frontal image. The cardiomediastinal silhouette is within normal limits. The lungs are clear. No infiltrate or consolidation noted.No pleural effusions are seen. There is noevidence of pneumothorax. The soft tissue and osseous structures appear unremarkable.IMPRESSION:Limited inspiration. No infiltrate or other acute findings identified LABORATORY REPORT NARRATIVE NOTES * None PATHOLOGY REPORT NARRATIVE NOTES * None PROGRESS NOTES * None
[2024-09-28 17:37] LABS: Anion Gap 7 (12-20); Blood Urea Nitrogen 12 mg/dL (9-16); Calcium 8.5 mg/dL (8.4-10.2); Carbon Dioxide 32 mmol/L (22-29); Chloride 105 mmol/L (96-108); Estimated Glomerular Filt Rate > 60; Glucose Random 135 mg/dL (60-115); Potassium 3.8 mmol/L (3.3-5.1); Sodium 140 mmol/L (135-145)
[2024-09-28 17:38] LABS: Anion Gap 10 (12-20); Blood Urea Nitrogen 12 mg/dL (9-16); Calcium 8.6 mg/dL (8.4-10.2); Carbon Dioxide 32 mmol/L (22-29); Chloride 104 mmol/L (96-108); Estimated Glomerular Filt Rate > 60; Potassium 3.9 mmol/L (3.3-5.1); Sodium 142 mmol/L (135-145)
== END 2024-09-28 10:34 | disposition home or self-care (01) ==
LOC: HO.HKASLDS 10:33
PROVIDERS: Visit Provider Internal Medicine Hypertension Specialist
DX: I12.9 Hypertensive chronic kidney disease with stage 1 through stage 4 chronic kidney disease, or unspecified chronic kidney disease (principal); N18.9 Chronic kidney disease, unspecified
CPT/HCPCS: 36415; 80048; 80051; 82310; 82565; 84520

== ENCOUNTER 2024-09-29 10:16 | Outpatient (AMB) | payer MEDICARE, SELFPAY ==
[2024-09-29 10:18] VITALS: BP 132/64; PULSE 60; O2SAT 100; BMI 26.8
--- NOTE | 2024-09-29 10:18 | HO.NEPHOV_ITS ---
Vital Signs 09/29/24 10:18 Height 5 ft 7 in Weight 171 lb BMI 26.8 BP 132/64 Blood Pressure Location Lt brachial Position Sitting Pulse 60 Pulse Source Pulse Oximeter Pulse Oximetry (%) 100 Oxygen Delivery Method Room Air Intake Visit Reasons: Follow-up Clinical Nursing Intern Required: No Accompanied by: Self / Same As Patient Allergies No Known Allergies Allergy (Verified 09/29/24 10:21) Medication List - Last Reconciled 09/29/24 by Yinka Bond MD atorvastatin 40 mg PO DAILY bimatoprost 0.01% (Lumigan) drps ophthalmic (eye) budesonide-formoterol 160-4.5 mcg/actuation (Symbicort) 2 puffs inhalation BID famotidine 40 mg PO DAILY lisinopril 20 mg PO DAILY metformin 1,000 mg PO BID metoprolol succinate ER 25 mg PO DAILY pantoprazole 40 mg PO DAILY semaglutide (Ozempic) mg subcut tamsulosin 0.8 mg PO DAILY HPI Comments Details: Middle aged man with HTN and DM referred for CKD In Jun 2023, Cr was 1.4 and in Jul 2023 , cr was 1.38 No specific complaints today He has a h/o smoking in the past and has since quit 02/21/24 Off Glburide Now on Ozempic ;Lost 19 pounds Feels dizzy when he stands 09/29/24 No further dizziness Still on Ozempic ; NO further weight loss PFSH Medical History Dry mouth, unspecified Hypertension High cholesterol Diabetes Family History Mother Diabetes Cancer Father Colon cancer Brother Diabetes Social History Alcohol intake: never Patient Tobacco Use Status: Never used Tobacco Physical Exam Vital Signs: Last Vital Signs Pulse 60 09/29/24 10:18 BP 132/64 09/29/24 10:18 Pulse Ox 100 09/29/24 10:18 Oxygen Delivery Method Room Air 09/29/24 10:18 BMI result Body Mass Index 26.8 Comfortable Neck supple no JVD. Lungs entry equal no rales. Heart S1-S2 heard no gallop or rub. Abdomen soft nontender. Neuro alert awake oriented. No asterixis. Extremities no edema. Results Reviewed Nephrology Results: Hgb 14.8 g/dl (14.0-18.0) 06/17/24 WBC 9.2 X10*3/uL (4.8-10.8) 06/17/24 Plt Count 255 X10*3/uL (160-400) 06/17/24 Sodium 142 mmol/L (135-145) 09/28/24 Potassium 3.9 mmol/L (3.3-5.1) 09/28/24 Chloride 104 mmol/L (96-108) 09/28/24 Carbon Dioxide 32 mmol/L (22-29) H 09/28/24 BUN 12 mg/dL (9-16) 09/28/24 Creatinine 1.16 mg/dL (0.5-1.4) 09/28/24 Calcium 8.6 mg/dL (8.4-10.2) 09/28/24 Urine Protein Negative mg/dL (Neg-Trace) 06/09/24 Urine Creatinine 139.04 mg/dL 06/09/24 Assessment & Plan Assessment & Plan (1) CKD (chronic kidney disease): Code(s): N18.9 - Chronic kidney disease, unspecified Category: Medical (2) Hypertension: Code(s): I10 - Essential (primary) hypertension Category: Medical Plan Middle aged man with HTN and DM with CKD 3 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 Goal is to maintain BP< 130/80, And A1C < 7% Continue with ACEi Avoid nephrotoxins including NSAIDS Increase PO fluid intake Will benefit from SGLT-2 inhibitors Since was hypotensive, I STOpped HCTZ 25 mg Switched LISINOPRIL HCT /25 to LISINOPRIL 20mg and blood pressure acceptable BP is well controlled now Orders: Orders Basic Metabolic Panel 5 Months I10 - Essential (primary) hypertension, N18.9 - Chronic kidney disease, unspecified Total Protein Urine Random Today I10 - Essential (primary) hypertension, N18.9 - Chronic kidney disease, unspecified UA and rflx microscopic Today I10 - Essential (primary) hypertension, N18.9 - Chronic kidney disease, unspecified Creatinine Urine Today I10 - Essential (primary) hypertension, N18.9 - Chronic kidney disease, unspecified Coding Level of Care Code Est Pt Level 4 (50392) Diagnoses CKD (chronic kidney disease) N18.9 Hypertension I10
== END 2024-09-29 10:31 | disposition home or self-care (01) ==
PROVIDERS: PCP Internal Medicine; Visit Provider Internal Medicine Hypertension Specialist
DX: I12.9 Hypertensive chronic kidney disease with stage 1 through stage 4 chronic kidney disease, or unspecified chronic kidney disease (principal); N18.9 Chronic kidney disease, unspecified
CPT/HCPCS: 99214

== ENCOUNTER → 2024-09-29 10:16 | Outpatient (BNVA) | payer MEDICARE, SELFPAY | PROVIDERS: PCP Internal Medicine; Visit Provider Internal Medicine Hypertension Specialist | DX: I12.9 Hypertensive chronic kidney disease with stage 1 through stage 4 chronic kidney disease, or unspecified chronic kidney disease (principal); E11.22 Type 2 diabetes mellitus with diabetic chronic kidney disease; N18.30 Chronic kidney disease, stage 3 unspecified | CPT/HCPCS: 99212 ==

== ENCOUNTER 2025-03-02 10:14 | Outpatient (REF) | payer MEDICARE, SELFPAY ==
--- OUTSIDE RECORDS SUMMARY | 2025-03-02 11:36 | XMS_ITS | Clinical Summary ---
Author Organization [address] Address [address] [place] [phone] Phone Care Team Providers Care Carrier Blower Name Role Phone Jay Estes MD Primary Care Provider [phone] Allergies No known active allergies Medications metoprolol succinate (TOPROL-XL) 25 mg 24 hr tablet Take 1 tablet by mouth once daily 90 tablet 3 024 Active tamsulosin (FLOMAX) 0.4 mg 24 hr capsule Take 1 capsule (0.4 mg total) by mouth 1 (one) time each day. 024 Active lisinopriL (PRINIVIL,ZESTRIL ) 20 mg tablet Take 1 tablet (20 mg total) by mouth 1 (one) time each day. 024 Active blood-glucose meter kit USE TO CHECK GLUCOSE TWICE DAILY 024 Active [facility] See administration instructions. 024 Active aspirin 81 mg EC tablet 81 mg. 011 Active bimatoprost (LUMIGAN) 0.01 % ophthalmic drops apply to the eye Active metFORMIN (GLUCOPHAGE) 1,000 mg tablet Take 1 tablet by mouth twice daily 180 tablet 1 025 Active Ozempic 0.25 mg or 0.5 mg (2 mg/3 mL) injection penIndications:Di abetes mellitus type 2 with neurological manifestations (CMS/HCC V24, CMS/HCC V28) INJECT 0.5MG SUBCUTANEOUSLY ONCE A WEEK 3 mL 5 025 Active famotidine (PEPCID) 40 mg tablet TAKE 1 TABLET BY MOUTH AT BEDTIME 90 tablet 025 Active pantoprazole (PROTONIX) 40 mg EC tablet Take 1 tablet by mouth once daily 90 tablet 025 Active atorvastatin (LIPITOR) 40 mg tablet Take 1 tablet by mouth once daily 90 tablet 025 Active blood sugar diagnostic (FreeStyle Lite Strips) test strip USE 1 STRIP TO CHECK GLUCOSE ONCE DAILY 100 each 3 025 Active pantoprazole (PROTONIX) 40 mg EC tablet Take 1 tablet by mouth once daily 90 tablet 1 024 2024 Discontinued atorvastatin (LIPITOR) 40 mg tablet Take 1 tablet by mouth once daily 90 tablet 1 024 2024 Discontinued famotidine (PEPCID) 40 mg tablet Take 1 Tablet by mouth at bedtime. 024 2024 Discontinued blood sugar diagnostic (FreeStyle Lite Strips) test strip 1 each. 024 2024 Discontinued Active Problems Problem Noted Date Diagnosed Date Palpitation 06/07/2022 Overview (08/19/2024): Last Assessment & Plan: Patient heart rate is irregular and patient felt palpitation. Yesterday he he went for his driving license medical exam and they found his heart rate is irregular. So patient came today for follow-up visit. Recent EKG is done also shows sinus bradycardia with irregular heart rate. Stress echo done a year ago was normal. TSH done in is within normal limit. Plan: Refer to cardiology for further management. Acute colitis 08/16/2019 Overview (08/19/2024): history GERD (gastroesophageal reflux disease) 8 Overview (08/19/2024): History H. pylori Chronic obstructive pulmonar y disease ([facility] V24, CMS/[facility] V28) 08/27/2017 Diabetes mellitus type 2 wit h neurological manifestations ([facility] V24, [facility] V28) 08/27/2017 Hyperlipidemia 08/27/2017 Hypertension 03/27/2017 Asthma 09/27/2016 Obstructive sleep apnea 09/27/2016 Osteoarthritis 06/30/2015 Peripheral neuropathy 06/30/2015 Psoriasis 04/19/2015 Anemia 03/20/2015 Hypothyroidism 03/20/2015 Chronic gastritis 06/13/2014 Internal hemorrhoids 05/18/2014 Anal fissure 04/29/2014 Nicotine dependence 08/31/2009 Encounters Date Type Department Care Team Description 12/16/2024 10:00 AM EDT Office Visit [facility] [address] [place] [address] Zayda Sims PA Diabetes mellitus type 2 with neurological manifestations ([facility] V24, [facility] V28) (Primary Dx) from Last 3 Months Immunizations Name Administration Dates Next Due Pneumococcal conjugate 13 va lent (Prevnar 13, PCV13) 2mo and older 08/04/2015 Pneumococcal polysaccharide 23 valent (Pneumovax 23) 2yo and older 10/03/2011 Surgical History Surgery Date Site/Laterality Comments OTHER SURGICAL HISTORY PROCEDURE: HISTORY OTHER; COMMENT: anal fistula repair UPPER GASTROINTESTINAL ENDOSCOPY 2017 PROCEDURE: [place] UPPER GI ENDOSCOPY PERFORMED; COMMENT: Gastritis Medical History Medical History Date Comments Anal fissure 04/29/2014 DX:Anal fissure Anemia 03/20/2015 DX:Anemia Asthma 09/27/2016 DX:Asthma Chronic gastritis 06/13/2014 DX:Chronic gas tritis Chronic obstructive pulmonar y disease ([facility] V24, [facility] V28) 08/27/2017 DX:Chronic obstructive pulm onary disease (HCC) Diabetes mellitus type 2 wit h neurological manifestations ([facility] V24, [facility] V28) 08/27/2017 DX:Diabetes mellitus type 2 with neurological manifestations (HCC) Hyperlipidemia 08/27/2017 DX:Hyperlipidemi a Hypertension 03/27/2017 DX:Hypertension Hypothyroidism 03/20/2015 DX:Hypothyroidis m Internal hemorrhoids 05/18/2014 DX:Internal hemorrhoids Nicotine dependence 08/31/2009 DX:Nicotine dependence Obstructive sleep apnea 09/27/2016 DX:Obstr uctive sleep apnea Peripheral neuropathy 06/30/2015 DX:Periphe ral neuropathy Psoriasis 04/19/2015 DX:Psoriasis Osteoarthritis 06/30/2015 DX:Osteoarthriti s Acute colitis 08/16/2019 DX:Acute colitis ; COMMENT: history GERD (gastroesophageal reflu x disease) 03/24/2018 DX:GERD (gastroesophageal re flux disease); COMMENT: History H. pylori Family History Medical History Relation Name Comments Colon cancer Father Relation Name Status Comments Father Social History Tobacco Use Types Packs/Day Years Used Date Smoking Tobacco: Former Cigarettes 1 22 0 04/16/1975 - 04/16/1997 Smokeless Tobacco: Never Tobacco Cessation:Counseling Given: Not Answered Alcohol Use Standard Drinks/Week Comments No 0 (1 standard drink = 0.6 oz pur e alcohol) Sex and Gender Information Value Date Recorded Sex Assigned at Not on file Legal Sex Male 4:32 AM EST Gender Identity Not on file Sexual Orientation Not on file Obstetrics History Last Filed Vital Signs Vital Sign Reading Time Taken Comments Blood Pressure 124/60 12/16/2024 10:17 AM EDT Pulse 56 12/16/2024 10:17 AM EDT Temperature 36.2 C (97.2 F) 12/16/2024 10:17 AM EDT Respiratory Rate - - Oxygen Saturation 99% 12/16/2024 10:17 AM EDT Inhaled Oxygen Concentration - - Weight 77.6 kg (171 lb) 12/16/2024 10:17 AM EDT Height 170.2 cm (5' 7 ) 12/16/2024 10:17 AM EDT Body Mass Index 26.78 12/16/2024 10:17 AM EDT Plan of Treatment Upcoming Encounters Date Type Department Care Team (Late st Contact Info) Description 06/09/2025 10:00 AM EDT Office Visit Pulmonolgy [facility] [address] [phone] Odalis Coats MD [address] [address] 06/17/2025 10:00 AM EDT Office Visit Endocrinology [address] [phone] Zayda Sims PA [address] [place] [address] Health Maintenance Due Date Last Done Comments DTaP,Tdap,and Td Vaccines (1 - Tdap) 1977 Zoster Vaccines (1 of 2) 2008 RSV Immunization Adult Patients (1 - Risk 60-74 years 1-dose series) 2018 Pneumococcal Vaccine: 50+ Years (3 of 3 - PCV20 or PCV21) 08/04/2020 08/04/2015, 10/03/2011 Depression Screening 08/24/2022 Social Influencers of Health Screening 08/24/2022 Falls Risk Assessment 2023 COVID-19 Vaccine (4 - 2023-2 5 season) 2024 03/07/2022, 11/08/2020, 10/18/2020 Diabetes: Annual Urine Albumin-Creatinine Ratio (uACR) 11/04/2024 11/04/2023 Diabetes: Annual Retina Eye Exam 12/23/2024 12/24/2023 Colorectal Cancer Screening: Colonoscopy 12/26/2024 12/27/2019, 12/27/2019 Diabetes: Annual Foot Exam 05/12/2025 05/12/2024 Influenza Vaccine (Season Ended) 2025 09/24/2021 Diabetes: Blood Sugar Contro l Test (HGBA1C) 06/14/2025 12/13/2024, 04/23/2024, 04/23/2024 Diabetes: Annual GFR (Glomerular Filtration Rate) 12/13/2025 12/13/2024, 05/13/2024 Hypertension/CHF/CAD Annual BMP Blood Test 12/13/2025 12/13/2024, 05/13/2024 Cholesterol Screening (Lipid Panel) 12/13/2029 12/13/2024, 11/04/2023 Hepatitis C Screening Completed 12/06/2020 Abdominal Aortic Aneurysm (AAA) Screen Completed 12/11/2023 HIB Vaccines Aged Out No longer eligi ble based on patient's age to complete this topic HPV Vaccines Aged Out No longer eligi ble based on patient's age to complete this topic Hepatitis A Vaccines Aged Out No long er eligible based on patient's age to complete this topic Hepatitis B Vaccines Aged Out No long er eligible based on patient's age to complete this topic IPV Vaccines Aged Out No longer eligi ble based on patient's age to complete this topic MMR Vaccines Aged Out No longer eligi ble based on patient's age to complete this topic Meningococcal ACWY Vaccine Aged Out N o longer eligible based on patient's age to complete this topic Meningococcal B Vaccine Aged Out No l onger eligible based on patient's age to complete this topic RSV Immunization Patients Under 20 months Aged Out No longer eligible b ased on patient's age to complete this topic Varicella Vaccines Aged Out No longer eligible based on patient's age to complete this topic Procedures Procedure Name Priority Date/Time Associated Diagnosis Comments POC GLUCOSE Routine 12/16/2024 10:20 AM EDT Diabetes mellitus type 2 with neurological manifestations ([facility] V24, [facility] V28) CBC WITH AUTO DIFFERENTIAL Routine 12/13/2024 10:20 AM EDT Routine general medical examination at a health care facility Abnormal blood chemistry Drug therapy COMPREHENSIVE METABOLIC PANEL Routine 12/13/2024 10:20 AM EDT Routine general medical examination at a health care facility Abnormal blood chemistry Drug therapy CBC AND DIFFERENTIAL Routine 12/13/2024 10:20 AM EDT Routine general medical examination at a health care facility Abnormal blood chemistry Drug therapy THYROID STIMULATING HORMONE WITH REFLEX TO FREE T4 AND FREE T3 Routine 12/13/2024 10:20 AM EDT Routine general medical examination at a health care facility Abnormal blood chemistry Drug therapy LIPID PANEL WITH REFLEX TO DIRECT LDL Routine 12/13/2024 10:20 AM EDT Routine general medical examination at a health care facility Abnormal blood chemistry Drug therapy HEMOGLOBIN A1C Routine 12/13/2024 10:20 AM EDT Routine general medical examination at a health care facility Abnormal blood chemistry Drug therapy VITAMIN B12 Routine 12/13/2024 10:20 AM EDT Routine general medical examination at a health care facility Abnormal blood chemistry Drug therapy DIABETES FOOT EXAM Routine 05/12/2024 DIABETES EYE EXAM Routine 12/24/2023 ABDOMINAL AORTIC ANEURYSM SCRREN Routine 12/11/2023 URINE ALBUMIN CREATININE RATIO Routine 11/04/2023 HEPATITIS C SCREENING Routine 12/06/2020 COLONOSCOPY Routine 12/27/2019 from Last 3 Months or Most Recently Relevant to Health Maintenance Results * POC glucose manually resulted (12/16/2024 10:20 AM EDT) [facility] Glucose POC 80 mg/dL Comment:Non fasting Blood Capillary blood specimen / Unknown 12/16/2024 10:20 AM EDT Zayda FRAZIER POINT OF CARE TEST ENTER/ED IT ORDERABLES Final Result * Thyroid stimulating hormone with reflex to free t4 and free t3 (12/13/2024 10:20 AM EDT) [facility] TSH 1.19 0.40 - 4.00 mcIU/mL LAB CHEMISTRY METHOD 12/13/2024 3:14 PM EDT [facility] Blood Venous blood specimen / Unknown Venipuncture / Unknown 12/13/2024 10:20 AM EDT 12/13/2024 11:34 AM EDT Jay Estes MD LAB BLOOD ORDERABLES Final Resul t [facility] [address] [place] [address], [place] [phone] * Lipid panel with reflex to direct LDL (12/13/2024 10:20 AM EDT) [facility] Cholesterol 138 0 - 200 mg/dL LAB CHEMISTRY METHOD 12/13/2024 1:53 PM EDT [facility] Triglycerides 44 0 - 150 mg/dL LAB CHEMISTRY METHOD 12/13/2024 1:53 PM EDT [facility] HDL 68 >=40 mg/dL LAB CHEMISTRY METHOD 12/13/2024 1:53 PM EDT [facility] LDL Calculated 61 0 - 100 mg/dL LAB CHEMISTRY METHOD 12/13/2024 1:53 PM EDT [facility] VLDL Cholesterol Thierno 8.8 mg/dL LAB CHEMISTRY METHOD 12/13/2024 1:53 PM EDT [facility] Non HDL Chol. (LDL+VLDL) 70 <145 mg/dL LAB CHEMISTRY METHOD 12/13/2024 1:53 PM EDT [facility] Chol/HDL Ratio 2.0 0.0 - 4.4 LAB CHEMISTRY METHOD 12/13/2024 1:53 PM EDT [facility] Blood Venous blood specimen / Unknown Venipuncture / Unknown 12/13/2024 10:20 AM EDT 12/13/2024 11:34 AM EDT us Jay Estes MD LAB BLOOD ORDERABLES Final Resul t [facility] [address] [place] [address], * (ABNORMAL) CBC auto differential (12/13/2024 10:20 AM EDT) WBC 9.4 4.8 - 10.8 K/mcL LAB HEMETOLOGY METHOD 12/13/2024 1:01 PM EDT [facility] RBC 4.90 4.50 - 5.50 M/mcL LAB HEMETOLOGY METHOD 12/13/2024 1:01 PM EDT [facility] Hemoglobin 15.0 13.5 - 17.5 g/dL LAB HEMETOLOGY METHOD 12/13/2024 1:01 PM EDT [facility] Hematocrit 44.6 42.0 - 54.0 % LAB HEMETOLOGY METHOD 12/13/2024 1:01 PM EDT [facility] MCV 91.0 79.0 - 98.0 FL LAB HEMETOLOGY METHOD [facility] MCH 30.6 27.0 - 32.0 pcg LAB HEMETOLOGY METHOD [facility]/13[facility]24 [facility] MCHC 33.6 32.0 - 37.0 g/dL LAB HEMETOLOGY METHOD [facility]/13[facility]24 [facility] RDW 12.9 11.0 - 15.0 % LAB HEMETOLOGY METHOD 12/13/2024 1:[address] [facility] Platelets 262 130 - 400 K/mcL LAB HEMETOLOGY METHOD 12/13/2024 1:[address] [facility] MPV 9.9 7.0 - 11.0 FL LAB HEMETOLOGY METHOD 12/13[facility]24 [facility] NRBC 0.0 <1.0 % LAB HEMETOLOGY METHOD 12/13/2024 1:[address] [facility] NRBC Absolute 0.00 <0.10 K/mcL LAB HEMETOLOGY METHOD 12/13/2024 1:[address] [facility] Neutrophils Relative 54.5 % LAB HEMETOLOGY METHOD 12/13/2024 1:[address] [facility] Lymphocytes Relative 29.8 % LAB HEMETOLOGY METHOD 12/13/2024 1:[address] [facility] Monocytes Relative 6.5 % LAB HEMETOLOGY METHOD 12/13/2024 1:[address] [facility] Eosinophils Relative 8.4 % LAB HEMETOLOGY METHOD 12/13/2024 1:[address] [facility] Basophils Relative 0.5 % LAB HEMETOLOGY METHOD 12/13/2024 1:[address] [facility] Immature Granulocytes Relative 0.3 % LAB HEMETOLOGY METHOD 12/13/2024 1:01 PM EDT [facility] Neutrophils Absolute 5.11 1.50 - 7.00 K/[facility] LAB HEMETOLOGY METHOD 12/13/2024 1:01 PM EDT [facility] Lymphocytes Absolute 2.80 1.00 - 5.00 K/[facility] LAB HEMETOLOGY METHOD 12/13/2024 1:01 PM EDT [facility] Monocytes Absolute 0.61 0.20 - 1.00 K/[facility] LAB HEMETOLOGY METHOD 12/13/2024 1:01 PM EDT [facility] Eosinophils Absolute 0.79(H) 0.00 - 0.50 K/[facility] LAB HEMETOLOGY METHOD 12/13/2024 1:01 PM EDT [facility] Basophils Absolute 0.05 0.00 - 0.20 K/[facility] LAB HEMETOLOGY METHOD 12/13/2024 1:01 PM EDT [facility] Immature Granulocytes Absolute 0.03 0.00 - 0.03 K/mcL LAB HEMETOLOGY METHOD 12/13/2024 1:01 PM EDT [facility] Blood Venous blood specimen / Unknown Venipuncture / Unknown 12/13/2024 10:20 AM EDT 12/13/2024 11:36 AM EDT us Jay Estes MD LAB BLOOD ORDERABLES Final Resul t [facility] [address] [place] [address], * (ABNORMAL) Hemoglobin A1c (12/13/2024 10:20 AM EDT) Hemoglobin A1C 6.6(H) <6.5 % LAB CHEMISTRY METHOD 12/13/2024 2:13 PM EDT [facility] Mean Bld Glu Estim. 143 mg/dL LAB CHEMISTRY METHOD 12/13/2024 2:13 PM EDT [facility] Blood Venous blood specimen / Unknown Venipuncture / Unknown 12/13/2024 10:20 AM EDT 12/13/2024 11:36 AM EDT us Jay Estes MD LAB BLOOD ORDERABLES Final Resul t Performing Organization Address City/[facility]/ZIP Co de Phone Number [facility] [address] [place] [address], [place] [phone] * Vitamin B12 (12/13/2024 10:20 AM EDT) [facility] Vitamin B-12 328 250 - 900 pcg/mL LAB CHEMISTRY METHOD 12/13/2024 1:53 PM EDT [facility] Blood Venous blood specimen / Unknown Venipuncture / Unknown 12/13/2024 10:20 AM EDT 12/13/2024 11:34 AM EDT us Jay Estes MD LAB BLOOD ORDERABLES Final Resul t Performing Organization Address [facility] Co de Phone Number [facility] [address] [place] [address], [place] [phone] * Comprehensive metabolic panel (12/13/2024 10:20 AM EDT) [facility] Sodium 138 133 - 145 mmol/L LAB CHEMISTRY METHOD 12/13/2024 1:53 PM EDT [facility] Potassium 4.4 3.5 - 5.5 mmol/L LAB CHEMISTRY METHOD 12/13/2024 1:53 PM EDT [facility] Chloride 101 96 - 110 mmol/L LAB CHEMISTRY METHOD 12/13/2024 1:53 PM EDT [facility] CO2 29 21 - 32 mmol/L LAB CHEMISTRY METHOD 12/13/2024 1:53 PM EDT [facility] Anion Gap 8 3 - 11 LAB CHEMISTRY METHOD 12/13/2024 1:[address] [facility] Glucose 98 70 - 100 mg/dL LAB CHEMISTRY METHOD 12/13/2024 1:[address] [facility] BUN 16 5 - 25 mg/dL LAB CHEMISTRY METHOD 12/13/2024 1:[address] [facility] Creatinine 1.12 0.70 - 1.30 mg/dL LAB CHEMISTRY METHOD 12/13/2024 1:[address] [facility] eGFR 72 >=60 mL/min/1. 73m2 LAB CHEMISTRY METHOD 12/13/2024 1:[address] [facility] Comment:Calculation based on the Chronic Kidney Disease Epidemiology Collaboration (CKD-EPI) equation refit without adjustment for race. BUN/Creatinine Ratio 14.3 LAB CHEMISTRY METHOD 12/13/2024 1:[address] [facility] Calcium 9.7 8.5 - 10.5 mg/dL LAB CHEMISTRY METHOD 12/13/2024 1:[address] [facility] AST (SGOT) 14 10 - 42 unit/L LAB CHEMISTRY METHOD 12/13/2024 1:[address] [facility] ALT (SGPT) 19 10 - 60 unit/L LAB CHEMISTRY METHOD 12/13/2024 1:[address] [facility] Alkaline Phosphatase 79 42 - 121 unit/L LAB CHEMISTRY METHOD 12/13/2024 1:[address] [facility] Total Protein 7.0 6.0 - 8.0 g/dL LAB CHEMISTRY METHOD 12/13/2024 1:[address] [facility] Albumin 4.0 3.2 - 5.0 g/dL LAB CHEMISTRY METHOD 12/13/2024 1:[address] [facility] Total Bilirubin 0.8 0.0 - 1.4 mg/dL LAB CHEMISTRY METHOD 12/13/2024 1:53 PM EDT [facility] Blood Venous blood specimen / Unknown Venipuncture / Unknown 12/13/2024 10:20 AM EDT 12/13/2024 11:34 AM EDT Jay Estes MD LAB BLOOD ORDERABLES Final Resul t [facility] [address] [place] [address], * Diabetes Foot Exam (05/12/2024) [facility] Diabetes: Annual Foot Exam abstracted Result [facility] Provider HEALTH MAINTENANCE Final Result * Diabetes Eye Exam (12/24/2023) [facility] Diabetes: Annual Retina Eye Exam abstracted [facility] Provider HEALTH MAINTENANCE Final Result * Abdominal Aortic Aneurysm Screen (12/11/2023) [facility] Abdominal Aortic Aneurysm (AAA) Screening abstracted Anatomical Region Laterality Modality Other Result [facility] Historical Provider HEALTH MAINTENANCE Final Result * Urine Albumin Creatinine Ratio (11/04/2023) [facility] Urine Albumin Creatinine Ratio abstracted Result [facility] Provider HEALTH MAINTENANCE Final Result * Hepatitis C Screening (12/06/2020) [facility] Hepatitis C Screening abstracted Result [facility] Provider HEALTH MAINTENANCE Final Result * Colonoscopy (12/27/2019) [facility] Colonoscopy No interpretation , abstracted Anatomical Region Laterality Modality Other Result [facility] Historical Provider HEALTH MAINTENANCE Final Result from Last 3 Months or Most Recently Relevant to Health Maintenance Insurance [place] [address] MEDICAID [place] Care Teams Carrier Blower Relationship Specialty Start Date End Date Jay Estes MD [address] [place] [id number] PCP - General Internal Medicine 12/13/24
[2025-03-02 18:17] LABS: Anion Gap 10 (12-20); Blood Urea Nitrogen 12 mg/dL (9-16); Calcium 9.5 mg/dL (8.4-10.2); Carbon Dioxide 26 mmol/L (22-29); Chloride 107 mmol/L (96-108); Estimated Glomerular Filt Rate > 60; Glucose Random 115 mg/dL (60-115); Potassium 4.1 mmol/L (3.3-5.1); Sodium 139 mmol/L (135-145)
== END 2025-03-02 10:15 | disposition home or self-care (01) ==
LOC: HO.HKASLDS 10:14
PROVIDERS: Visit Provider Internal Medicine Hypertension Specialist
DX: N18.9 Chronic kidney disease, unspecified (principal); I10 Essential (primary) hypertension
CPT/HCPCS: 36415; 80048

== ENCOUNTER 2025-03-04 10:12 | Outpatient (REF) | payer MEDICARE, SELFPAY ==
--- OUTSIDE RECORDS SUMMARY | 2025-03-04 10:28 | XMS_ITS | Clinical Summary ---
Author Organization [address] Address [address] [place] [phone] Phone Care Team Providers Care Resourcing Consultant Name Role Phone Jay Estes MD Primary Care Provider [phone] Allergies No known active allergies Medications metoprolol [...] GLUCOSE TWICE DAILY 024 Active [facility] See administration instructions. 024 Active aspirin 81 [...] H. pylori Chronic obstructive pulmonar y disease ([facility] V24, [facility] V28) 08/27/2017 Diabetes mellitus type 2 wit h neurological manifestations ([facility] V24, [facility] V28) 08/27/2017 Hyperlipidemia 08/27/2017 Hypertension 03/27/2017 Asthma 09/27/2016 Obstructive sleep apnea 09/27/2016 Osteoarthritis 06/30/2015 Peripheral neuropathy 06/30/2015 Psoriasis 04/19/2015 Anemia 03/20/2015 Hypothyroidism 03/20/2015 Chronic gastritis 06/13/2014 Internal hemorrhoids 05/18/2014 Anal fissure 04/29/2014 Nicotine dependence 08/31/2009 Encounters Date Type Department Care Team Description 12/16/2024 10:00 AM EDT Office Visit [facility] [address] [place] [address] Zayda Sims PA Diabetes mellitus type 2 with neurological manifestations ([facility] V24, [facility] V28) (Primary Dx) from Last 3 Months Immunizations Name Administration Dates Next Due Pneumococcal conjugate 13 va lent (Prevnar 13, PCV13) 2mo and older 08/04/2015 Pneumococcal polysaccharide 23 valent (Pneumovax 23) 2yo and older 10/03/2011 Surgical History Surgery Date Site/Laterality Comments OTHER SURGICAL HISTORY PROCEDURE: HISTORY OTHER; COMMENT: anal fistula repair UPPER GASTROINTESTINAL ENDOSCOPY 2017 PROCEDURE: ID UPPER GI ENDOSCOPY PERFORMED; COMMENT: Gastritis Medical History Medical History Date Comments Anal fissure 04/29/2014 DX:Anal fissure Anemia 03/20/2015 DX:Anemia Asthma 09/27/2016 DX:Asthma Chronic gastritis 06/13/2014 DX:Chronic gas tritis Chronic obstructive pulmonar y disease ([facility] V24, [facility] V28) 08/27/2017 DX:Chronic obstructive pulm onary disease (HCC) Diabetes mellitus type 2 wit h neurological manifestations ([facility] V24, [facility] V28) 08/27/2017 DX:Diabetes mellitus type 2 [...] 06/09/2025 10:00 AM EDT Office Visit Pulmonolgy [facility] [address] [phone] Odalis Coats MD [address] [address] 06/17/2025 10:00 AM EDT Office Visit Endocrinology [address] [phone] Zayda Sims PA [address] [place] [address] Health Maintenance Due Date Last Done Comments [...] Diabetes mellitus type 2 with neurological manifestations ([facility] V24, [facility] V28) CBC WITH AUTO DIFFERENTIAL Routine [...] glucose manually resulted (12/16/2024 10:20 AM EDT) [facility] Glucose POC 80 mg/dL Comment:Non fasting Blood Capillary blood specimen / Unknown 12/16/2024 10:20 AM EDT Zayda FRAZIER POINT OF CARE TEST ENTER/ED IT ORDERABLES Final Result * Thyroid stimulating hormone with reflex to free t4 and free t3 (12/13/2024 10:20 AM EDT) [facility] TSH 1.19 0.40 - 4.00 mcIU/mL LAB CHEMISTRY METHOD 12/13/2024 3:14 PM EDT [facility] Blood Venous blood specimen / Unknown Venipuncture / Unknown 12/13/2024 10:20 AM EDT 12/13/2024 11:34 AM EDT Jay Estes MD LAB BLOOD ORDERABLES Final Resul t [facility] [address] [place] [address], [place] [phone] * Lipid panel with reflex to direct LDL (12/13/2024 10:20 AM EDT) [facility] Cholesterol 138 0 - 200 mg/dL LAB CHEMISTRY METHOD 12/13/2024 1:53 PM EDT [facility] Triglycerides 44 0 - 150 mg/dL LAB CHEMISTRY METHOD 12/13/2024 1:53 PM EDT [facility] HDL 68 >=40 mg/dL LAB CHEMISTRY METHOD 12/13/2024 1:53 PM EDT [facility] LDL Calculated 61 0 - 100 mg/dL LAB CHEMISTRY METHOD 12/13/2024 1:53 PM EDT [facility] VLDL Cholesterol Thierno 8.8 mg/dL LAB CHEMISTRY METHOD 12/13/2024 1:53 PM EDT [facility] Non HDL Chol. (LDL+VLDL) 70 <145 mg/dL LAB CHEMISTRY METHOD 12/13/2024 1:53 PM EDT [facility] Chol/HDL Ratio 2.0 0.0 - 4.4 LAB CHEMISTRY METHOD 12/13/2024 1:53 PM EDT [facility] Blood Venous blood specimen / Unknown Venipuncture / Unknown 12/13/2024 10:20 AM EDT 12/13/2024 11:34 AM EDT us Jay Estes MD LAB BLOOD ORDERABLES Final Resul t [facility] [address] [place] [address], * (ABNORMAL) CBC auto differential (12/13/2024 10:20 AM EDT) WBC 9.4 4.8 - 10.8 K/mcL LAB HEMETOLOGY METHOD 12/13/2024 1:01 PM EDT [facility] RBC 4.90 4.50 - 5.50 M/mcL LAB HEMETOLOGY METHOD 12/13/2024 1:01 PM EDT [facility] Hemoglobin 15.0 13.5 - 17.5 g/dL LAB HEMETOLOGY METHOD 12/13/2024 1:01 PM EDT [facility] Hematocrit 44.6 42.0 - 54.0 % LAB HEMETOLOGY METHOD 12/13/2024 1:01 PM EDT [facility] MCV 91.0 79.0 - 98.0 FL LAB HEMETOLOGY METHOD [facility]24 [facility] MCH 30.6 27.0 - 32.0 pcg LAB HEMETOLOGY METHOD 12/13[facility]24 [facility] MCHC 33.6 32.0 - 37.0 g/dL LAB HEMETOLOGY METHOD 12/13[facility]2024 [facility] RDW 12.9 11.0 - 15.0 % LAB HEMETOLOGY METHOD 12/13/2024 1:01 PM [facility] Platelets 262 130 - 400 K/mcL LAB HEMETOLOGY METHOD 12/13/2024 1:01 PM [facility] MPV 9.9 7.0 - 11.0 FL LAB HEMETOLOGY METHOD 12/13/2024 1:[facility] NRBC 0.0 <1.0 % LAB HEMETOLOGY METHOD 12/13/2024 1:01 PM [facility] NRBC Absolute 0.00 <0.10 K/mcL LAB HEMETOLOGY METHOD 12/13/2024 1:01 PM [facility] Neutrophils Relative 54.5 % LAB HEMETOLOGY METHOD 12/13/2024 1:01 PM [facility] Lymphocytes Relative 29.8 % LAB HEMETOLOGY METHOD 12/13/2024 1:01 PM [facility] Monocytes Relative 6.5 % LAB HEMETOLOGY METHOD 12/13/2024 1:01 PM [facility] Eosinophils Relative 8.4 % LAB HEMETOLOGY METHOD 12/13/2024 1:01 PM [facility] Basophils Relative 0.5 % LAB HEMETOLOGY METHOD 12/13/2024 1:01 PM [facility] Immature Granulocytes Relative 0.3 % LAB HEMETOLOGY METHOD 12/13/2024 1:01 PM EDT [facility] Neutrophils Absolute 5.11 1.50 - 7.00 K/[facility] LAB HEMETOLOGY METHOD 12/13/2024 1:01 PM EDT [facility] Lymphocytes Absolute 2.80 1.00 - 5.00 K/[facility] LAB HEMETOLOGY METHOD 12/13/2024 1:01 PM EDT [facility] Monocytes Absolute 0.61 0.20 - 1.00 K/[facility] LAB HEMETOLOGY METHOD 12/13/2024 1:01 PM EDT [facility] Eosinophils Absolute 0.79(H) 0.00 - 0.50 K/[facility] LAB HEMETOLOGY METHOD 12/13/2024 1:01 PM EDT [facility] Basophils Absolute 0.05 0.00 - 0.20 K/[facility] LAB HEMETOLOGY METHOD 12/13/2024 1:01 PM EDT [facility] Immature Granulocytes Absolute 0.03 0.00 - 0.03 K/mcL LAB HEMETOLOGY METHOD 12/13/2024 1:01 PM EDT [facility] Blood Venous blood specimen / Unknown Venipuncture / Unknown 12/13/2024 10:20 AM EDT 12/13/2024 11:36 AM EDT us Jay Estes MD LAB BLOOD ORDERABLES Final Resul t [facility] [address] [place] [address], * (ABNORMAL) Hemoglobin A1c (12/13/2024 10:20 AM EDT) Hemoglobin A1C 6.6(H) <6.5 % LAB CHEMISTRY METHOD 12/13/2024 2:13 PM EDT [facility] Mean Bld Glu Estim. 143 mg/dL LAB CHEMISTRY METHOD 12/13/2024 2:13 PM EDT [facility] Blood Venous blood specimen / Unknown Venipuncture / Unknown 12/13/2024 10:20 AM EDT 12/13/2024 11:36 AM EDT us Jay Estes MD LAB BLOOD ORDERABLES Final Resul t Performing Organization Address City/[facility]/ZIP Co de Phone Number [facility] [address] [place] [address], [place] [phone] * Vitamin B12 (12/13/2024 10:20 AM EDT) [facility] Vitamin B-12 328 250 - 900 pcg/mL LAB CHEMISTRY METHOD 12/13/2024 1:53 PM EDT [facility] Blood Venous blood specimen / Unknown Venipuncture / Unknown 12/13/2024 10:20 AM EDT 12/13/2024 11:34 AM EDT us Jay Estes MD LAB BLOOD ORDERABLES Final Resul t Performing Organization Address [facility] Co de Phone Number [facility] [address] [place] [address], [place] [phone] * Comprehensive metabolic panel (12/13/2024 10:20 AM EDT) [facility] Sodium 138 133 - 145 mmol/L LAB CHEMISTRY METHOD 12/13/2024 1:53 PM EDT [facility] Potassium 4.4 3.5 - 5.5 mmol/L LAB CHEMISTRY METHOD 12/13/2024 1:53 PM EDT [facility] Chloride 101 96 - 110 mmol/L LAB CHEMISTRY METHOD 12/13/2024 1:53 PM EDT [facility] CO2 29 21 - 32 mmol/L LAB CHEMISTRY METHOD 12/13/2024 1:53 PM EDT [facility] Anion Gap 8 3 - 11 LAB CHEMISTRY METHOD 12/13/2024 1:53 PM [facility] Glucose 98 70 - 100 mg/dL LAB CHEMISTRY METHOD 12/13/2024 1:53 PM [facility] BUN 16 5 - 25 mg/dL LAB CHEMISTRY METHOD 12/13/2024 1:53 PM [facility] Creatinine 1.12 0.70 - 1.30 mg/dL LAB CHEMISTRY METHOD 12/13/2024 1:53 PM [facility] eGFR 72 >=60 mL/min/1. 73m2 LAB CHEMISTRY METHOD 12/13/2024 1:53 PM [facility] Comment:Calculation based on the Chronic Kidney Disease Epidemiology Collaboration (CKD-EPI) equation refit without adjustment for race. BUN/Creatinine Ratio 14.3 LAB CHEMISTRY METHOD 12/13/2024 1:53 PM [facility] Calcium 9.7 8.5 - 10.5 mg/dL LAB CHEMISTRY METHOD 12/13/2024 1:53 PM [facility] AST (SGOT) 14 10 - 42 unit/L LAB CHEMISTRY METHOD 12/13/2024 1:53 PM [facility] ALT (SGPT) 19 10 - 60 unit/L LAB CHEMISTRY METHOD 12/13/2024 1:53 PM [facility] Alkaline Phosphatase 79 42 - 121 unit/L LAB CHEMISTRY METHOD 12/13/2024 1:53 PM [facility] Total Protein 7.0 6.0 - 8.0 g/dL LAB CHEMISTRY METHOD 12/13/2024 1:53 PM [facility] Albumin 4.0 3.2 - 5.0 g/dL LAB CHEMISTRY METHOD 12/13/2024 1:53 PM [facility] Total Bilirubin 0.8 0.0 - 1.4 mg/dL LAB CHEMISTRY METHOD 12/13/2024 1:53 PM EDT [facility] Blood Venous blood specimen / Unknown Venipuncture / Unknown 12/13/2024 10:20 AM EDT 12/13/2024 11:34 AM EDT Jay Estes MD LAB BLOOD ORDERABLES Final Resul t [facility] [address] [place] [address], * Diabetes Foot Exam (05/12/2024) [facility] Diabetes: Annual Foot Exam abstracted Result [facility] Provider HEALTH MAINTENANCE Final Result * Diabetes Eye Exam (12/24/2023) [facility] Diabetes: Annual Retina Eye Exam abstracted [facility] Provider HEALTH MAINTENANCE Final Result * Abdominal Aortic Aneurysm Screen (12/11/2023) [facility] Abdominal Aortic Aneurysm (AAA) Screening abstracted Anatomical Region Laterality Modality Other Result [facility] Historical Provider HEALTH MAINTENANCE Final Result * Urine Albumin Creatinine Ratio (11/04/2023) [facility] Urine Albumin Creatinine Ratio abstracted Result [facility] Provider HEALTH MAINTENANCE Final Result * Hepatitis C Screening (12/06/2020) [facility] Hepatitis C Screening abstracted Result [facility] Provider HEALTH MAINTENANCE Final Result * Colonoscopy (12/27/2019) [facility] Colonoscopy No interpretation , abstracted Anatomical Region Laterality Modality Other Result [facility] Historical Provider HEALTH MAINTENANCE Final Result from Last 3 Months or Most Recently Relevant to Health Maintenance Insurance [facility] MEDICAID - [place] Care Teams Resourcing Consultant Relationship Specialty Start Date End Date Jay Estes MD [address] [place] [id number] PCP - General Internal Medicine 12/13/24
[2025-03-04 17:31] LABS: Appearance Urine Turbid; Color Urine Yellow; Glucose Urine UA Negative (Negative); Leukocyte Esterase Urine Negative (Negative); Nitrite Urine Negative (Negative); PH 5.5 (5.0-9.0); Specific Gravity - Urine 1.025 (1.005-1.025); Urine Blood Negative (Negative); Urine Ketones Trace mg/dL (Negative); Urine Protein Negative (Neg-Trace)
[2025-03-04 17:57] LABS: Creatinine Urine 222.13 mg/dL; Total Protein Urine Random 8 mg/dL (<12)
== END 2025-03-04 10:13 | disposition home or self-care (01) ==
LOC: HO.HKASLDS 10:12
PROVIDERS: Visit Provider Internal Medicine Hypertension Specialist
DX: I12.9 Hypertensive chronic kidney disease with stage 1 through stage 4 chronic kidney disease, or unspecified chronic kidney disease (principal); N18.9 Chronic kidney disease, unspecified
CPT/HCPCS: 81003; 82570; 84156

== ENCOUNTER 2025-03-09 11:50 | Outpatient (AMB) | payer MEDICARE, SELFPAY ==
--- NOTE | 2025-03-09 11:56 | HO.NEPHOV ---
Vital Signs 03/09/25 11:57 Height 5 ft 7 in Weight 170 lb BMI 26.6 BP 116/50 L Blood Pressure Location Lt brachial Position Sitting Pulse 70 Pulse Source Pulse Oximeter Pulse Oximetry (%) 97 Oxygen Delivery Method Room Air Intake Visit Reasons: Follow Up 5mo CONF Entry Level Accounting Clerk Required: No Accompanied by: Self / Same As Patient Allergies No Known Allergies Allergy (Verified 03/09/25 11:58) Medication List - Last Reconciled 03/09/25 by Yinka Bond MD atorvastatin 40 mg PO DAILY bimatoprost 0.01% (Lumigan) drps ophthalmic (eye) budesonide-formoterol 160-4.5 mcg/actuation (Symbicort) 2 puffs inhalation BID famotidine 40 mg PO DAILY lisinopril 20 mg PO DAILY metformin 1,000 mg PO BID metoprolol succinate ER 25 mg PO DAILY pantoprazole 40 mg PO DAILY semaglutide (Ozempic) mg subcut tamsulosin 0.8 mg PO DAILY HPI Comments Details: Middle aged man with HTN and DM referred for CKD In Jun 2023, Cr was 1.4 and in Jul 2023 , cr was 1.38 No specific complaints today He has a h/o smoking in the past and has since quit 02/21/24;Off Glburide;Now on Ozempic ;Lost 19 pounds Feels dizzy when he stands 09/29/24;No further dizziness;Still on Ozempic ; NO further weight loss 03/09/25 The patient is a 64-year-old male presenting for a follow-up on kidney function and management of hypertension. The patient reports stable kidney function with a creatinine level of 1.06, improved from 1.16 in September, indicating stable chronic kidney disease. He has been advised to maintain hydration and avoid NSAIDs to prevent further kidney damage. The patient also reports an elevated PSA level, for which a biopsy is pending. He is under the care of a urologist for this condition. The patient has a history of hypertension, currently well-controlled with a blood pressure reading of 116/50 mmHg. He denies any symptoms of lightheadedness or dizziness. The patient has not experienced any weight change since September, maintaining a weight of 170 pounds. He is currently on Ozempic without any significant weight loss. [facility] Medical History Dry mouth, unspecified Hypertension High cholesterol Diabetes Family History Mother Diabetes Cancer Father Colon cancer Brother Diabetes Social History Alcohol intake: never Patient Tobacco Use Status: Never used Tobacco Physical Exam Vital Signs: BMI result Body Mass Index 26.6 Comfortable Neck supple no JVD. Lungs entry equal no rales. Heart S1-S2 heard no gallop or rub. Abdomen soft nontender. Neuro alert awake oriented. No asterixis. Extremities no edema. Results Reviewed Nephrology Results: Hgb, (14.0-18.0) 14.8 g/dl 06/17/24 WBC, (4.8-10.8) 9.2 X10*3/uL 06/17/24 Plt Count, (160-400) 255 X10*3/uL 06/17/24 Sodium, (135-145) 139 mmol/L 03/02/25 Potassium, (3.3-5.1) 4.1 mmol/L 03/02/25 Chloride, (96-108) 107 mmol/L 03/02/25 Carbon Dioxide, (22-29) 26 mmol/L 03/02/25 BUN, (9-16) 12 mg/dL 03/02/25 Creatinine, (0.5-1.4) 1.06 mg/dL 03/02/25 Calcium, (8.4-10.2) 9.5 mg/dL Δ 03/02/25 Urine Protein, (Neg-Trace) Negative mg/dL 03/04/25 Urine Creatinine 222.13 mg/dL 03/04/25 Renal US 10/03/23 Assessment & Plan Assessment & Plan (1) CKD (chronic kidney disease): Code(s): N18.9 - Chronic kidney disease, unspecified Category: Medical (2) Hypertension: Code(s): I10 - Essential (primary) hypertension Category: Medical Plan Middle aged man with HTN and DM with CKD 3 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 - Avoid NSAIDs like Aleve, Advil, and Motrin. - Follow up with your urologist regarding the PSA biopsy. - Monitor your blood pressure regularly. - Maintain your current medications and lifestyle changes. Orders: Orders Basic Metabolic Panel 6 Months I10 - Essential (primary) hypertension Total Protein Urine Random 6 Months I10 - Essential (primary) hypertension UA and rflx microscopic 6 Months I10 - Essential (primary) hypertension Creatinine Urine 6 Months I10 - Essential (primary) hypertension Coding Level of Care Code Est Pt Level 4 (69217) Diagnoses CKD (chronic kidney disease) N18.9 Hypertension I10
[2025-03-09 11:57] VITALS: BP 116/50; PULSE 70; O2SAT 97; BMI 26.6
--- OUTSIDE RECORDS SUMMARY | 2025-03-09 14:04 | XMS_ITS | Encounter Summary ---
Author Organization [employer] Address [address] [place] [address] Care Team Providers Care Inside Barrel Lathe Operator Name Role Phone Jay Estes MD Primary Care Provider [phone] Encounter Details Date Type Department Care Team (Late Contact Info) Description 03/07/2025 Lab Requisition [facility] - Main Lab [address] [facility] [place] [address] Kumar Merino MD [address] [facility] [address] [place] [phone] Elevated prostate specific antigen (PSA) Social History Tobacco Use Types Packs/Day Years Used Date Smoking Tobacco: Former Cigarettes 1 22 0 04/16/1975 - 04/16/1997 Smokeless Tobacco: Never Alcohol Use Standard Drinks/Week Comments No 0 (1 standard drink = 0.6 oz pur e alcohol) Sex and Gender Information Value Date Recorded Sex Assigned at Not on file Legal Sex Male 4:32 AM EST Gender Identity Not on file Sexual Orientation Not on file documented as of this encounter Plan of Treatment Upcoming Encounters Date Type Department Care Team (Late Contact Info) Description 06/09/2025 10:00 AM EDT Office Visit Pulmonolgy - [place] 175 [facility] [address] [place] [address] Odalis Coats MD 175 [facility] [address] [place], [place] [id number] 06/17/2025 10:00 AM EDT Office Visit Endocrinology - [place] [address] [place] [address] Zayda Sims PA [address] [place] [address] Pending Results Name Type Priority Associated Diagnoses Date /Time Culture fluoroquinolone resistant organism Microbiology Routine Elevated prostate specific antigen (PSA) 03/07/2025 12:00 AM EDT documented as of this encounter Visit Diagnoses Diagnosis Elevated prostate specific antigen (PSA) documented in this encounter Care Teams Inside Barrel Lathe Operator Relationship Specialty Start Date End Date Jay Estes MD [address] [place] [address] [address] [place] [address] PCP - General Internal Medicine 12/13/24 documented as of this encounter
== END 2025-03-09 12:24 | disposition home or self-care (01) ==
LOC: HO.HKAS 11:51
PROVIDERS: PCP Internal Medicine; Visit Provider Internal Medicine Hypertension Specialist
DX: I12.9 Hypertensive chronic kidney disease with stage 1 through stage 4 chronic kidney disease, or unspecified chronic kidney disease (principal); N18.9 Chronic kidney disease, unspecified
CPT/HCPCS: 99214

== ENCOUNTER → 2025-03-09 11:50 | Outpatient (BNVA) | payer MEDICARE, SELFPAY | PROVIDERS: PCP Internal Medicine; Visit Provider Internal Medicine Hypertension Specialist | DX: I12.9 Hypertensive chronic kidney disease with stage 1 through stage 4 chronic kidney disease, or unspecified chronic kidney disease (principal); N18.9 Chronic kidney disease, unspecified | CPT/HCPCS: 99212 ==

== ENCOUNTER 2025-08-24 09:46 | Outpatient (REF) | payer MEDICARE, OTHER, SELFPAY ==
[2025-08-24 13:54] LABS: Appearance Urine Clear; Glucose Urine UA Negative (Negative); PH 5.5 (5.0-9.0); Specific Gravity - Urine 1.020 (1.005-1.025)
[2025-08-24 14:25] LABS: Anion Gap 12 (12-20); Blood Urea Nitrogen 15 mg/dL (9-16); Calcium 9.3 mg/dL (8.4-10.2); Carbon Dioxide 27 mmol/L (22-29); Chloride 106 mmol/L (96-108); Estimated Glomerular Filt Rate > 60; Potassium 4.2 mmol/L (3.3-5.1); Sodium 141 mmol/L (135-145)
[2025-08-24 14:52] LABS: Total Protein Urine Random < 7 mg/dL (<12)
== END 2025-08-24 09:47 ==
LOC: HO.HKASLDS 09:46
PROVIDERS: PCP Internal Medicine; Visit Provider Internal Medicine Hypertension Specialist
DX: I10 Essential (primary) hypertension (principal)
CPT/HCPCS: 36415; 80048; 81003; 82570; 84156

== ENCOUNTER 2025-08-31 10:29 | Outpatient (AMB) | payer MEDICARE, SELFPAY ==
[2025-08-31 10:29] VITALS: BP 140/70; PULSE 64; O2SAT 100; BMI 26.5
--- NOTE | 2025-08-31 10:29 | HO.NEPHOV_ITS ---
Vital Signs 08/31/25 10:29 08/31/25 10:37 Height 5 ft 7 in Weight 169 lb BMI 26.5 BP 140/70 H 120/60 Blood Pressure Location Lt brachial Lt brachial Position Sitting Sitting Pulse 64 Pulse Source Pulse Oximeter Pulse Oximetry (%) 100 Oxygen Delivery Method Room Air Intake Visit Reasons: 6m follow up Lumber Press Operator Required: No Lumber Press Operator Services: Lumber Press Operator Offered & Declined (Patient understands Greenlandic ) Accompanied by: Self / Same As Patient Allergies No Known Allergies Allergy (Verified 08/31/25 10:30) Medication List - Last Reconciled 08/31/25 by Yinka Bond MD atorvastatin 40 mg PO DAILY bimatoprost 0.01% (Lumigan) drps ophthalmic (eye) budesonide-formoterol 160-4.5 mcg/actuation (Symbicort) 2 puffs inhalation BID famotidine 40 mg PO DAILY lisinopril 20 mg PO DAILY metformin 1,000 mg PO BID metoprolol succinate ER 25 mg PO DAILY pantoprazole 40 mg PO DAILY semaglutide (Ozempic) mg subcut tamsulosin 0.8 mg PO DAILY HPI Comments Details: History of Present Illness The patient is a 65 year old male presenting for a follow-up visit for management of hypertension, diabetes mellitus, and chronic kidney disease. He is currently taking lisinopril, metformin, and Ozempic. Regarding his diabetes, his blood sugar is under control with a recent A1c of 6.2. The patient has experienced significant weight loss, from 190 pounds last year to his current weight of 169 pounds. The patient reports not checking his blood pressure at home. He reports his breathing is good and he does not need an inhaler, though he experiences some dyspnea with significant exercise. He denies any issues with urination. The patient had a physical with his primary care physician about a month ago, and reports that everything was good. He acknowledges drinking less water during the colder season. Results - Labs: A1c is 6.2. - Urinalysis: Negative for protein and blood. - Kidney Function Test: Normal. [facility] Medical History Dry mouth, unspecified Hypertension High cholesterol Diabetes Family History Mother Diabetes Cancer Father Colon cancer Brother Diabetes Social History Alcohol intake: never Patient Tobacco Use Status: Never used Tobacco Physical Exam Exam Exam: Physical Exam General: Awake. Comfortable. HENT: Neck supple. Mucosa moist. Pulmonary: Lungs aeration equal. No rales. Cardiology: Heart S1-S2 heard. No gallop. Abdomen: Soft. Non tender. Bowel sounds normal. Neurologic: No involuntary movements. No myoclonus. Extremities: No edema. No rash. Vital Signs: Last Vital Signs Pulse 64 08/31/25 10:29 BP 140/70 H 08/31/25 10:29 Pulse Ox 100 08/31/25 10: Oxygen Delivery Method Room Air 08/31/25 10:29 BMI result Body Mass Index 26.5 Results Reviewed Nephrology Results: Hgb, (14.0-18.0) 14.8 g/dl 06/17/24 WBC, (4.8-10.8) 9.2 X10*3/uL 06/17/24 Plt Count, (160-400) 255 X10*3/uL 06/17/24 Sodium, (135-145) 141 mmol/L 08/24/25 Potassium, (3.3-5.1) 4.2 mmol/L 08/24/25 Chloride, (96-108) 106 mmol/L 08/24/25 Carbon Dioxide, (22-29) 27 mmol/L 08/24/25 BUN, (9-16) 15 mg/dL 08/24/25 Creatinine, (0.5-1.4) 0.97 mg/dL 08/24/25 Calcium, (8.4-10.2) 9.3 mg/dL 08/24/25 Urine Protein, (Neg-Trace) Negative mg/dL 08/24/25 Urine Creatinine 97.66 mg/dL 08/24/25 Renal US 10/03/23 Assessment & Plan Assessment & Plan (1) CKD (chronic kidney disease): Code(s): N18.9 - Chronic kidney disease, unspecified Category: Medical (2) Hypertension: Code(s): I10 - Essential (primary) hypertension Category: Medical Plan Plan 1. Hypertension - The patient's hypertension is stable. - He will continue taking lisinopril. - He was advised to eat less salt. 2. Type 2 Diabetes Mellitus - The patient's diabetes is well-controlled, with a recent A1c of 6.2. - He will continue his current medications of metformin and Ozempic. 3. Chronic Kidney Disease Mild- Stage 1 Cr is at baseline of 0.97 - The patient's kidney function is stable and described as fantastic, with recent urinalysis showing no protein or blood. - The patient was advised to maintain adequate water intake. - An order will be placed for blood and urine tests to be completed before his next follow-up. - Follow-up is scheduled in 9 months. Orders: Orders Basic Metabolic Panel 9 Months N18.9 - Chronic kidney disease, unspecified Creatinine Urine 9 Months N18.9 - Chronic kidney disease, unspecified Total Protein Urine Random 9 Months N18.9 - Chronic kidney disease, unspecified UA and rflx microscopic 9 Months N18.9 - Chronic kidney disease, unspecified Medications: Refilled lisinopril 20 mg PO DAILY 90 tabs 3RF Coding Level of Care Code Est Pt Level 4 (21377) Diagnoses CKD (chronic kidney disease) N18.9 Hypertension I10
[2025-08-31 10:37] VITALS: BP 120/60
--- OUTSIDE RECORDS SUMMARY | 2025-08-31 13:05 | XMS_ITS | Encounter Summary ---
Author Organization [employer] Address [address] [place] [address] Care Team Providers Care Revenue Audit Clerk Name Role Phone Jay Estes MD Primary Care Provider [phone] Encounter Details Date Type Department Care Team (Late Contact Info) Description 03/07/2025 Lab Requisition [facility] - Main Lab 299 [facility] [place] [id number] Kumar Merino MD 3640 [facility] 103 [place] [address] Elevated prostate specific antigen (PSA) Social History [...] Department Care Team (Late Contact Info) Description 10/18/2025 8:00 AM EST Appointment [facility] Endoscopy [address] [place] [address] Gerber Rouse MD 299 [facility] [address] [place], [place] [phone] 12/07/2025 10:00 AM EDT Ancillary Procedure Pulmonology - [place] 175 [facility] 200 [place] [address] 12/07/2025 10:45 AM EDT Office Visit Pulmonology - [place] [address] [phone] Odalis Coats MD 230 [place] [address] 02/03/2026 10:45 AM EDT Office Visit Internal Medicine - [place] [address] [phone] Jay Estes MD [address] [address] 02/15/2026 10:00 AM EDT Office Visit Endocrinology [address] [address] Zayda Sims PA [address] [place] [address] documented as of this encounter Procedures Procedure Name Priority Date/Time Associated Diagnosis Comments FLUOROQUINOLONE RESISTANT GNR IDENTIFICATION AND SUSCEPTIBILITY Routine 03/07/2025 12:00 AM EDT Elevated prostate specific antigen (PSA) CULTURE FLUOROQUINOLONE RESISTANT ORGANISM Routine 03/07/2025 12:00 AM EDT Elevated prostate specific antigen (PSA) documented in this encounter Results * Fluoroquinolone resistant GNR identification and susceptibility (03/07/2025 12:00 AM EDT) Result 1 No Fluoroquinolone Resistant GNR Detected. 03/10/2025 2:05 PM EDT [facility] Swab Rectum structure / Unknown 03/07/2025 03/07/2025 10:42 AM EDT Narrative [facility] - 03/10/2025 2:05 PM EDT Performed at: - [facility] [id number] Vender: January Trujillo MD, Phone: [phone] us Kumar Merino MD LAB MICROBIOLOGY - GENERAL ORDER KATERIN Final Result [facility] * Culture fluoroquinolone resistant organism (03/07/2025 12:00 AM EDT) Fluoroquinolone Resist GNR Cul Final report 03/10/2025 2:05 PM EDT [facility] Swab Rectum structure / Unknown 03/07/2025 03/07/2025 10:42 AM EDT Narrative [facility] - 03/10/2025 2:05 PM EDT Performed at: 01 - [facility] [id number] Vender: January Trujillo MD, Phone: [phone] us Kumar Merino MD LAB MICROBIOLOGY - GENERAL ORDER KATERIN Final Result Performing Organization Address City/[facility]/ZIP Co de Phone Number [facility] documented in this encounter Visit Diagnoses Diagnosis Elevated prostate specific antigen (PSA) documented in this encounter Care Teams Revenue Audit Clerk Relationship Specialty Start Date End Date Jay Estes MD [address] [place] [address] PCP - General Internal Medicine 12/13/24 documented as of this encounter
--- OUTSIDE RECORDS SUMMARY | 2025-08-31 13:05 | XMS_ITS | Encounter Summary ---
Author Organization [employer] Address [address] [place] [address] Care Team Providers [employer] Market Consultant Name Role Phone Jay Estes MD Primary Care Provider [phone] Encounter Details Date Type Department Care Team (Late Contact Info) Description 07/18/2025 Results Follow-Up [facility] - [facility] 154 300 [facility] 154 [place] [phone] Zuleyma Wolfe NP [address] [place] [address] [place] [phone] Social History Tobacco Use Types Packs/Day Years [...] Info) Description 10/18/2025 8:00 AM EST Appointment [facility] Endoscopy [address] [place] [address] Gerber Rouse MD 299 [facility] 419 [place] [address] 12/07/2025 10:00 AM EDT Ancillary Procedure Pulmonology - [place] 175 [facility] 200 [place] [address] 12/07/2025 10:45 AM EDT Office Visit Pulmonology - [place] [address] [phone] Odalis Coats MD [address] [place] [address] 02/03/2026 10:45 AM EDT Office Visit Internal Medicine - [place] [address] [phone] Jay Estes MD [address] [address] 02/15/2026 10:00 AM EDT Office Visit Endocrinology [address] [address] Zayda Sims PA [address] [place] [address] documented as of this encounter Visit Diagnoses Not on filedocumented in this encounter Care Teams [employer] Market Consultant Relationship Specialty Start Date End Date Jay Estes MD [address] [address] PCP - General Internal Medicine 12/13/24 documented as of this encounter
--- OUTSIDE RECORDS SUMMARY | 2025-08-31 13:05 | XMS_ITS | Clinical Summary ---
Author Organization [facility] [address] [place] [address] [place] [phone] Phone Care Team Providers Care Hog Grader Name Role Phone Jay Estes MD Primary Care Provider [phone] Allergies No known active allergies Medications tamsulosin (FLOMAX) 0.4 mg 24 hr capsule Take 1 capsule (0.4 mg total) by mouth 1 (one) time each day. 03/17/20 24 Active aspirin 81 mg EC tablet 81 mg. 10/31/19 11 Active bimatoprost (LUMIGAN) 0.01 % ophthalmic drops apply to the eye Active blood sugar diagnostic (FreeStyle Lite Strips) test strip USE 1 STRIP TO CHECK GLUCOSE ONCE DAILY 100 each 5 03/15/20 25 Active lancets lancetsIndications :Diabetes mellitus type 2 with neurological manifestations (CMS/HCC V24, CMS/HCC V28) Check blood sugar 1 times a day or as directed 100 each 03/17/20 25 026 Active blood-glucose meter (Accu-Chek Guide Glucose Meter) miscIndications:Di abetes mellitus type 2 with neurological manifestations (CMS/HCC V24, CMS/HCC V28) Use daily to check bs 1 each 03/17/20 25 Active blood sugar diagnostic (Accu-Chek Guide test strips) test stripIndications:D iabetes mellitus type 2 with neurological manifestations (CMS/HCC V24, CMS/HCC V28) Use daily to check bs 100 each 12 03/17/20 25 026 Active ciprofloxacin (CIPRO) 500 mg tablet TAKE 1 TABLET BY MOUTH TWICE DAILY (IN THE MORNING AND EVENING OF PROSTATE BIOPSY) 03/11/20 25 Active atorvastatin (LIPITOR) 40 mg tablet Take 1 tablet by mouth once daily 90 tablet 05/10/20 25 Active famotidine (PEPCID) 40 mg tablet TAKE 1 TABLET BY MOUTH AT BEDTIME 90 tablet 05/10/20 25 Active metFORMIN (GLUCOPHAGE) 1,000 mg tablet Take 1 tablet (1,000 mg total) by mouth 2 (two) times a day. 180 tablet 2 06/17/20 25 Active semaglutide (Ozempic) 0.25 mg or 0.5 mg (2 mg/3 mL) injection penIndications:Sonya betes mellitus type 2 with neurological manifestations (CMS/HCC V24, CMS/HCC V28) Inject 0.5 mg under the skin 1 (one) time per week. 9 mL 3 06/17/20 25 Active metoprolol succinate (TOPROL-XL) 25 mg 24 hr tabletIndications: Secondary hypertension,Palpi tation Take 1 tablet (25 mg total) by mouth 1 (one) time each day. 90 each 2 07/05/20 25 026 Active lisinopriL (PRINIVIL,ZESTRIL) 20 mg tabletIndications: Secondary hypertension,Palpi tation Take 1 tablet (20 mg total) by mouth 1 (one) time each day. 90 each 2 07/05/20 25 Active pantoprazole (PROTONIX) 40 mg EC tablet Take 1 tablet by mouth once daily 90 tablet 08/08/20 25 Active pantoprazole (PROTONIX) 40 mg EC tablet Take 1 tablet by mouth once daily 90 tablet 05/10/20 25 025 Discontinued cephalexin (KEFLEX) 500 mg capsule Take 1 capsule (500 mg total) by mouth 2 (two) times a day for 7 days. 14 each 08/08/20 25 025 Active Problems Problem Noted Date Diagnosed Date [...] Plan: Refer to cardiology for further management. Assessment & Plan (07/05/2025 11:16 AM EDT): Continue metoprolol. No ectopy noted on EKG today. Denies perception of arrhythmia. Orders: metoprolol succinate (TOPROL-XL) 25 mg 24 hr tablet; Take 1 tablet (25 mg total) by mouth 1 (one) time each day. lisinopriL (PRINIVIL,ZESTRIL) 20 mg tablet; Take 1 tablet (20 mg total) by mouth 1 (one) time each day. GERD (gastroesophageal reflux disease) 8 Overview (08/19/2024): History H. pylori Assessment & Plan (08/08/2025 12:26 PM EST): Stable on 40 mg pantoprazole. Orders: CBC and differential; Future Comprehensive metabolic panel; Future Lipid panel with reflex to direct LDL; Future Thyroid stimulating hormone; Future Chronic obstructive pulmonary disease 08/27/2017 Diabetes mellitus type 2 with neurological manif estations 08/27/2017 Assessment & Plan (08/08/2025 12:26 PM EST): Under control now on Ozempic, metformin. Orders: CBC and differential; Future Comprehensive metabolic panel; Future Lipid panel with reflex to direct LDL; Future Thyroid stimulating hormone; Future Hyperlipidemia 08/27/2017 Hypertension 03/27/2017 Assessment & Plan (08/08/2025 12:26 PM EST): Under control on lisinopril. Orders: CBC and differential; Future Comprehensive metabolic panel; Future Lipid panel with reflex to direct LDL; Future Thyroid stimulating hormone; Future Assessment & Plan (07/05/2025 11:16 AM EDT): Well-controlled today with a reading of 122/60. I have made no changes to his medications. He will continue lisinopril 20 mg and metoprolol succinate 25 mg. Educated on the importance of diet lifestyle to help further assist in reducing blood pressure. The patient was encouraged to follow low-salt low-fat diet, make purposeful strides towards weight loss, and engage in routine aerobic exercise as tolerated. Orders: ECG 12 lead metoprolol succinate (TOPROL-XL) 25 mg 24 hr tablet; Take 1 tablet (25 mg total) by mouth 1 (one) time each day. lisinopriL (PRINIVIL,ZESTRIL) 20 mg tablet; Take 1 tablet (20 mg total) by mouth 1 (one) time each day. Asthma 09/27/2016 Obstructive sleep apnea 09/27/2016 Osteoarthritis 06/30/2015 Peripheral neuropathy 06/30/2015 Psoriasis 04/19/2015 Chronic gastritis 06/13/2014 Internal hemorrhoids 05/18/2014 Resolved Problems Problem Noted Date Diagnosed Date Resolved Date Acute colitis 08/16/2019 06/09/2025 Overview (08/19/2024): history Anemia 03/20/2015 06/09/2025 Hypothyroidism 03/20/2015 06/17/2025 Anal fissure 04/29/2014 06/09/2025 Nicotine dependence 08/31/2009 06/09/20 25 Encounters Date Type Department Care Team Description 08/08/2025 11:15 AM EST Office Visit Internal Medicine - [place] [facility] [address] [place] [phone] Jay Estes MD Hypercholesterolemia (Primary Dx); Gastroesophageal reflux disease without esophagitis; Diabetes mellitus type 2 with neurological manifestations (CMS/HCC V24, CMS/HCC V28); Primary hypertension; Ingrown toenail of left foot with infection; Screening for colon cancer 07/18/2025 Results Follow-Up [facility] Cardiology [facility] [address] [facility] [address] [place] [phone] Zuleyma Wolfe NP 07/14/2025 9:00 AM EDT Ancillary Procedure [facility] [address] [place] [phone] Chest pain, unspecified type; Shortness of breath 07/05/2025 10:40 AM EDT Office Visit [facility] [address] [facility] [address] [place] [phone] Zuleyma Wolfe NP Secondary hypertension (Primary Dx); Palpitation; Chest pain, unspecified type; Shortness of breath 06/17/2025 10:00 AM EDT Office Visit [address] [phone] Zayda Sims PA Diabetes mellitus type 2 with neurological manifestations ([facility]/HCC V24, CMS/HCC V28) (Primary Dx); Secondary hypertension; Familial hypercholesterolemia, unspecified type 06/14/2025 Telephone Pulmonology [facility] 175 [facility] [address] [place] [phone] Chelsey Sotelo MA 06/14/2025 Results Follow-Up [address] [phone] Zayda Sims PA 06/09/2025 10:00 AM EDT Office Visit Pulmonology [facility] [address] [phone] Odalis Coats MD Obstructive sleep apnea (Primary Dx); Moderate asthma, unspecified whether complicated, unspecified whether persistent 06/09/[address] [phone] Zayda Sims PA from Last 3 Months Immunizations Immunization Administration Dates Next Due Influenza trivalent, 0.5mL ( Fluzone High-dose) 65yo and older 08/08/2025 Pneumococcal conjugate 13 va lent (Prevnar 13, PCV13) 2mo and older 08/04/2015 Pneumococcal polysaccharide 23 valent (Pneumovax 23) 2yo and older 10/03/2011 Surgical History Surgery Date Site/Laterality Comments OTHER SURGICAL HISTORY PROCEDURE: HISTORY OTHER; COMMENT: anal fistula repair UPPER GASTROINTESTINAL ENDOSCOPY 2017 PROCEDURE: NM UPPER GI ENDOSCOPY PERFORMED; COMMENT: Gastritis Medical History Medical History Date Comments Anal fissure 04/29/2014 DX:Anal fissure Anemia 03/20/2015 DX:Anemia Asthma 09/27/2016 DX:Asthma Chronic gastritis 06/13/2014 DX:Chronic gas tritis Chronic obstructive pulmonar y disease (CMS/[facility] V24, [facility] V28) 08/27/2017 DX:Chronic obstructive pulm onary disease (HCC) Diabetes mellitus type 2 wit h neurological manifestations ([facility] V24, [facility] V28) 08/27/2017 DX:Diabetes mellitus type 2 with [...] drink = 0.6 oz pur e alcohol) Housing Instability Answer Date Recorde d Are you worried that in the next 2 months you may not have stable housing? No 08/08/2025 Food Access & Nutrition Answer Date Rec orded Do you have access to a vari ety of food including fruits and vegetables? No 08/08/2025 Health Literacy Answer Date Recorded How often do you need to hav e someone help you when you read instructions, pamphlets, or other written material from your doctor or pharmacy? Never 08/08/2025 Caregiver: How often do you need to have someone help you when you read instructions, pamphlets, or other written material from your doctor or pharmacy? Not on file 08/08/2025 Financial Risk Answer Date Recorded How hard is it for you to pa y for the very basics like food, housing, medical care, and air conditioning / heating? Not very hard 08/08/2025 Transportation Answer Date Recorded Has the lack of transportati on kept you from meetings, work, or from getting things needed for daily living? No Has the lack of transportati on kept you from medical appointments or from getting medications? No 08/08/2025 Social Isolation Answer Date Recorded How often do you feel lonely or isolated from th ose around you? Never 08/08/2025 Food Risk Answer Date Recorded Within the past 12 months we worried whether our food would run out before we got money to buy more. Never true 08/08/2025 Within the past 12 months th e food we bought just didn't last and we didn't have money to get more. Never true 08/08/2025 Dependent Care Answer Date Recorded Do you need help finding or paying for care for your loved ones. For example, child care cook or elderly care for an older adult? No 08/08/2025 Education Answer Date Recorded Do you think completing more education or training, like finishing a GED, going to college, or learning a trade, would be helpful for you? No 08/08/2025 Employment and Income Answer Date Recor ded During the last four weeks, have you been actively looking for work? No 08/08/2025 Living Situation Answer Date Recorded What is your living situation? Unrecognized valu e 08/08/2025 Sex and Gender Information Value Date Recorded Sex Assigned at Not on file Legal Sex Male 4:32 AM EST Gender Identity Not on file Sexual Orientation Not on file Last Filed Vital Signs Vital Sign Reading Time Taken Comments Blood Pressure 135/70 08/08/2025 11:10 AM EST Pulse 59 08/08/2025 11:10 AM EST Temperature 35.9 C (96.7 F) 08/08/2025 11:10 AM EST Respiratory Rate 20 06/09/2025 10:02 AM EDT Oxygen Saturation 98% 08/08/2025 11:10 AM EST Inhaled Oxygen Concentration - - Weight 73.5 kg (162 lb) 08/08/2025 11:10 AM EST Height 170.2 cm (5' 7 ) 07/14/2025 9:09 AM EDT Body Mass Index 25.37 07/14/2025 9:09 AM EDT Plan of Treatment Upcoming Encounters Date Type Department Care Team (Late st Contact Info) Description 10/18/2025 8:00 AM EST Appointment [facility] Endoscopy [address] [place] [phone] Gerber Rouse MD [address] [facility] [address] [place] [address] 12/07/2025 10:00 AM EDT Ancillary Procedure Pulmonology - [place] [facility] [address] [place] [phone] 12/07/2025 10:45 AM EDT Office Visit Pulmonology - [place] [facility] [address] [place] [phone] Odalis Coats MD [address] [place] [phone] 02/03/2026 10:45 AM EDT Office Visit Internal Medicine - [place] [address] [facility] [address] [place] [phone] Jay Estes MD 175 [facility] [address] [place] [address] 02/15/2026 10:00 AM EDT Office Visit Endocrinology [address] [phone] Zayda Sims PA [address] [place] [address] Health Maintenance Due Date Last Done Comments DTaP,Tdap,and Td Vaccines (1 - Tdap) 1977 RSV Immunization Adult Patients (1 - Risk 50-74 years 1-dose series) 2008 Zoster Vaccines (1 of 2) 2008 Pneumococcal Vaccine: 50+ Years (3 of 3 - PCV20 or PCV21) 08/04/2020 08/04/2015, 10/03/2011 Colorectal Cancer Screening: Colonoscopy 12/26/2024 12/27/2019, 12/27/2019 Diabetes: Annual Foot Exam 05/12/2025 05/12/2024 COVID-19 Vaccine ( season) 2025 03/07/2022, 11/08/2020, 10/18/2020 Diabetes: Blood Sugar Control Test (HGBA1C) 12/11/2025 06/13/2025, 12/13/2024, 04/23/2024, Additional history exists Diabetes: Annual GFR (Glomerular Filtration Rate) 12/13/2025 12/13/2024, 05/13/2024 Hypertension/CHF/CAD Annual BMP Blood Test 12/13/2025 12/13/2024, 05/13/2024 Diabetes: Annual Retina Eye Exam 01/24/2026 01/24/2025, 12/24/2023 Diabetes: Annual Urine Albumin-Creatinine Ratio (uACR) 06/13/2026 06/13/2025, 11/04/2023 Falls Risk Assessment 08/08/2026 08/08/2025 Medicare Annual Wellness Visit 08/08/2026 08/08/2025 Social Influencers of Health Screening 08/08/2026 08/08/2025 Cholesterol Screening (Lipid Panel) 12/13/2029 12/13/2024, 11/04/2023 Hepatitis C Screening Completed 12/06/2020 Abdominal Aortic Aneurysm (AAA) Screen Completed 12/11/2023 Depression Screening Completed 08/08/2025 Influenza Vaccine Completed 08/08/2025, 09/24/2021 HIB Vaccines Aged Out No longer eligi [...] 20 months Aged Out No longer eligible based on patient's age to complete this topic Varicella Vaccines Aged Out No longer eligible based on patient's age to complete this topic Goals Goal Patient Goal Type Associated Problems Recent Progress Patient-Stated? Author Autogenerat ed Goal Care Plan Autogenerated Problem No Sindhu Bernard Procedures Procedure Name Priority Date/Time Associated Diagnosis Comments EXTERNAL CLINICAL LAB 08/24/2025 NM EXERCISE STRESS TEST W/ MYOCARDIAL PERFUSION Routine 07/14/2025 11:08 AM EDT Chest pain, unspecified type Shortness of breath ECG 12-LEAD Routine 07/05/2025 11:16 AM EDT Secondary hypertension POC GLUCOSE Routine 06/17/2025 10:16 AM EDT Diabetes mellitus type 2 with neurological manifestations (CMS/HCC V24, CMS/HCC V28) HEMOGLOBIN A1C Routine 06/13/2025 9:51 AM EDT Diabetes mellitus type 2 with neurological manifestations (CMS/HCC V24, CMS/HCC V28) MICROALBUMIN CREATININE URINE RATIO Routine 06/13/2025 9:50 AM EDT Diabetes mellitus type 2 with neurological manifestations (CMS/HCC V24, CMS/HCC V28) COMPREHENSIVE METABOLIC PANEL Routine 12/13/2024 10:20 AM [...] 12/24/2023 ABDOMINAL AORTIC ANEURYSM SCRREN Routine 12/11/2023 HEPATITIS C SCREENING Routine 12/06/2020 COLONOSCOPY Routine 12/27/2019 from Last 3 Months or Most Recently Relevant to Health Maintenance Results * External clinical lab (08/24/2025) us Provider [facility] BLOOD ORDERABLES Fin al Result * NM EXERCISE STRESS TEST W/ MYOCARDIAL PERFUSION (07/14/2025 11:08 AM EDT) Exercise/injec tion duration (min) 9 CV PACS STRESS Exercise/injec tion duration (sec) 42 CV PACS STRESS Peak SBP 182 mmHg CV PACS STRESS Peak DBP 70 mmHg CV PACS STRESS Peak HR 148 bpm CV PACS STRESS Baseline HR 71 bpm CV PACS STRESS Baseline SBP 154 mmHg CV PACS STRESS Baseline DBP 69 mmHg CV PACS STRESS Estimated workload 12.4 METS CV PACS STRESS Percent HR 97 % CV PACS STRESS Rate Pressure Product 26,936.0 mmHg*bpm CV PACS STRESS Target HR 130 bpm CV PACS STRESS Angina Index 0 CV PACS STRESS Max HR Percent 97 % CV PA CS STRESS O2 sat rest 99 % CV PACS STRESS TID 0.81 CV PACS STRESS Nuc Stress EF 74 % CV PAC S STRESS Nuc Rest EF 75 % CV PACS STRESS BSA 1.9 m2 CV PACS STRESS Anatomical Region Laterality Modality Nuclear Medicine 07/14/2025 10:0 2 AM EDT 07/14/2025 10:48 AM EDT Impressions 07/14/2025 3:16 PM EDT Normal Exercise stress test with nuclear imaging. No chest pain or EKG changes consistent with ischemia. Nuclear imaging revealed no significant perfusion defects. There is a normal TID ratio. Gated SPECT imaging was performed and revealed an LVEF of 75 %. Narrative 07/14/2025 3:16 PM EDT Stress Findings A Tommy protocol stress test was performed. Overall, the patient's exercise capacity was above average. Total stress time was 9 min and 42 sec. The patient experienced no angina during the test. The test was stopped because the patient experienced fatigue. The patient's hemodynamic response was adequate for diagnosis. Blood pressure demonstrated a normal response. Heart rate demonstrated a normal response. The patient reported no symptoms during the stress test. ECG 65 yo male with a history of HTN, ISIDRA, DMII, COPD, GERD and former tobacco use referred for CP/EDWARDS. The ECG shows normal sinus rhythm. The ECG axis is normal. Arrhythmias during stress: occasional premature ventricular contractions (PVCs) . There is no significant ST abnormalities during stress. Arrhythmias during recovery: occasional premature ventricular contractions (PVCs). The result of the stress ECG was negative for ischemia. Nuclear Study Quality Study technique: MPI, SPECT, multi, rest and stress, 1 day. Overall image quality is excellent. CT attenuation correction was utilized. There are no artifacts present. There was no increased lung uptake of the radiopharmaceutical. No radiopharmaceutical dose was extravasated. The time from injection to rest imaging is 30 mins. The time from injection to stress imaging is 15 mins. Stress Function Comments Stress ejection fraction is 74%. Rest Function Comments Resting ejection fraction was 75%. us Zuleyma Wolfe NP CV STRESS PROCEDURES F inal Result * ECG 12 lead (07/05/2025 11:16 AM EDT) Ventricular Rate ECG 56 BPM GEMUSE Atrial Rate 56 BPM GEMUSE P-R Interval 176 ms GEMUSE QRS Duration 92 ms GEMUSE Q-T Interval 376 ms GEMUSE QTc 362 ms GEMUSE P Wave [place] 71 degrees GEMUSE R [place] 25 degrees GEMUSE T [place] 41 degrees GEMUSE ECG Interpretation Sinus bradycardia Otherwise normal ECG When compared with ECG of 07-DEC-2019 11:50, Nonspecific T wave abnormality has replaced inverted T waves in Inferior leads QT has shortened Confirmed by MD Cody, Kelechi ([id number]) on 07/11/2025 9:36:27 AM GEMUSE 07/05/2025 10:4 1 AM EDT 07/11/2025 9:36 AM EDT us Zuleyma Wolfe NP ECG ORDERABLES Edited Result - Final GEMUSE * POC glucose manually resulted (06/17/2025 10:16 AM EDT) Glucose POC 141 mg/dL Blood Capillary blood specimen / Unknown 06/17/2025 10:16 AM EDT Zayda FRAZIER POINT OF CARE TEST ENTER/ED IT ORDERABLES Final Result * Hemoglobin A1c (06/13/2025 9:51 AM EDT) Hemoglobin A1C 6.2 <6.5 % LAB CHEMISTRY METHOD 06/14/2025 9:09 AM EDT [facility] Mean Bld Glu Estim. 131 mg/dL LAB CHEMISTRY METHOD 06/14/2025 9:09 AM EDT [facility] Blood Venous blood specimen / Unknown Venipuncture / Unknown 06/13/2025 9:51 AM EDT 06/13/2025 9:51 AM EDT Zayda FRAZIER LAB BLOOD ORDERABLES Final Result Performing Organization Address City/[facility]/ZIP Co de Phone Number [facility] [address] [place] [address], * Microalbumin creatinine urine ratio (06/13/2025 9:50 AM EDT) Creatinine, Urine 137.0 mg/dL LAB CHEMISTRY METHOD 06/13/2025 7:46 PM EDT [facility] Microalb, Ur 5.2 0.0 - 29.0 mg/L LAB CHEMISTRY METHOD 06/13/2025 7:46 PM EDT [facility] Microalb/Creat Ratio 4 <30 mg/g creat LAB CHEMISTRY METHOD 06/13/2025 7:46 PM EDT [facility] Urine Urine specimen from urethra / Unknown Non-blood Collection / Unknown 06/13/2025 9:50 AM EDT 06/13/2025 9:50 AM EDT Zayda FRAZIER LAB URINE ORDERABLES Final Result Performing Organization Address City/[facility]/ZIP Co de Phone Number [facility] [address] [place] [address], [place] [phone] * Lipid panel with reflex to direct LDL (12/13/2024 10:20 AM EDT) Cholesterol 138 0 - 200 mg/dL LAB CHEMISTRY METHOD 12/13/2024 1:53 PM EDT [facility] Triglycerides 44 0 - 150 mg/dL LAB CHEMISTRY METHOD 12/13/2024 1:53 PM EDT [facility] HDL 68 >=40 mg/dL LAB CHEMISTRY METHOD 12/13/2024 1:53 PM EDT [facility] LDL Calculated 61 0 - 100 mg/dL LAB CHEMISTRY METHOD 12/13/2024 1:53 PM EDT [facility] VLDL Cholesterol Thierno 8.8 mg/dL LAB CHEMISTRY METHOD 12/13/2024 1:53 PM EDT [facility] Non HDL Chol. (LDL+VLDL) 70 <145 mg/dL LAB CHEMISTRY METHOD 12/13/2024 1:53 PM EDT [facility] Chol/HDL Ratio 2.0 0.0 - 4.4 LAB CHEMISTRY METHOD 12/13/2024 1:53 PM EDT [facility] Blood Venous blood specimen / Unknown Venipuncture / Unknown 12/13/2024 10:20 AM EDT 12/13/2024 11:34 AM EDT Jay Estes MD LAB BLOOD ORDERABLES Final Resul t [facility] [address] [place] [address], [place] [phone] * Comprehensive metabolic panel (12/13/2024 10:20 AM EDT) Sodium 138 133 - 145 mmol/L LAB CHEMISTRY METHOD 12/13/2024 1:53 PM EDT [facility] Potassium 4.4 3.5 - 5.5 mmol/L LAB CHEMISTRY METHOD 12/13/2024 1:53 PM [facility] Chloride 101 96 - 110 mmol/L LAB CHEMISTRY METHOD 12/13/2024 1:53 PM [facility] CO2 29 21 - 32 mmol/L LAB CHEMISTRY METHOD 12/13/2024 1:53 PM [facility] Anion Gap 8 3 - 11 LAB CHEMISTRY METHOD 12/13/2024 1:53 PM [facility] Glucose 98 70 - 100 mg/dL LAB CHEMISTRY METHOD 12/13/2024 1:53 PM [facility] BUN 16 5 - 25 mg/dL LAB CHEMISTRY METHOD 12/13/2024 1:53 PM [facility] Creatinine 1.12 0.70 - 1.30 mg/dL LAB CHEMISTRY METHOD 12/13/2024 1:53 PM [facility] eGFR 72 >=60 mL/min/1. 73m2 LAB CHEMISTRY METHOD 12/13/2024 1:53 PM [facility] Comment:Calculation based on the Chronic Kidney Disease Epidemiology Collaboration (CKD-EPI) equation refit without adjustment for race. BUN/Creatinine Ratio 14.3 LAB CHEMISTRY METHOD 12/13/2024 1:53 PM [facility] Calcium 9.7 8.5 - 10.5 mg/dL LAB CHEMISTRY METHOD 12/13/2024 1:53 PM [facility] AST (SGOT) 14 10 - 42 unit/L LAB CHEMISTRY METHOD 12/13/2024 1:53 PM [facility] ALT (SGPT) 19 10 - 60 unit/L LAB CHEMISTRY METHOD 12/13/2024 1:53 PM [facility] Alkaline Phosphatase 79 42 - 121 unit/L LAB CHEMISTRY METHOD 12/13/2024 1:53 PM [facility] Total Protein 7.0 6.0 - 8.0 g/dL LAB CHEMISTRY METHOD 12/13/2024 1:53 PM EDT [facility] Albumin 4.0 3.2 - 5.0 g/dL LAB CHEMISTRY METHOD 12/13/2024 1:53 PM EDT [facility] Total Bilirubin 0.8 0.0 - 1.4 mg/dL LAB CHEMISTRY METHOD 12/13/2024 1:53 PM EDT [facility] Blood Venous blood specimen / Unknown Venipuncture / Unknown 12/13/2024 10:20 AM EDT 12/13/2024 11:34 AM EDT Jay Estes MD LAB BLOOD ORDERABLES Final Resul t [facility] [address] [place] [address], [place] [phone] * Diabetes Foot Exam (05/12/2024) [facility] Diabetes: Annual Foot Exam abstracted Result [facility] HEALTH MAINTENANCE Final Result * Diabetes Eye Exam (12/24/2023) [facility] Diabetes: Annual Retina Eye Exam abstracted Result [facility] HEALTH MAINTENANCE Final Result * Abdominal Aortic Aneurysm Screen (12/11/2023) [facility] Abdominal Aortic Aneurysm (AAA) Screening abstracted Anatomical Region Laterality Modality Other Result [facility] Provider HEALTH MAINTENANCE Final Result * Hepatitis C Screening (12/06/2020) [facility] Hepatitis C Screening abstracted Result [facility] HEALTH MAINTENANCE Final Result * Colonoscopy (12/27/2019) [facility] Colonoscopy No interpretation , abstracted Anatomical Region Laterality Modality Other [facility] HE[facility] MAINTENANCE Final Result from Last 3 Months or Most Recently Relevant to Health Maintenance Additional Health Concerns Active Problems Noted Date Diagnosed Date Autogenerated Problem 08/29/2025 Insurance [place] [address] MEDICAID [place] [employer] Care Teams Hog Grader Relationship Specialty Start Date End Date Jay Estes MD [address] [facility] [address] [facility] [address] [place] [address] PCP - General Internal Medicine 12/13/24
--- OUTSIDE RECORDS SUMMARY | 2025-08-31 13:05 | XMS_ITS | Encounter Summary ---
Author Organization [facility] Address [address] [place] [address] Care Team Providers Care Nutrition Counselor Name Role Phone Jay Estes MD Primary Care Provider [phone] Encounter Details Date Type Department Care Team (Late Contact Info) Description 05/19/2025 Lab Requisition [facility] - Main Lab [address] [facility] [place] [phone] Kumar Merino MD [address] [facility] [address] [place] [address] Elevated prostate specific antigen (PSA) [...] Info) Description 10/18/2025 8:00 AM EST Appointment [facility] Endoscopy [address] [place] [address] Gerber Rouse MD [address] [facility] [address] [place], [place] [id number] 12/07/2025 10:00 AM EDT Ancillary Procedure Pulmonology - [place] [address] [facility] 200 [place] [address] 12/07/2025 10:45 AM EDT Office Visit Pulmonology - [place] 175 [facility] [address] [place] [phone] Odalis Coats MD [address] [place] [address] 02/03/2026 10:45 AM EDT Office Visit Internal Medicine - [place] [address] [facility] [address] [place] [address] Jay Estes MD [address] [address] 02/15/2026 10:00 AM EDT Office Visit Endocrinology [address] [phone] Zayda Sims PA [address] [place] [address] documented as of this encounter Procedures Procedure Name Priority Date/Time Associated Diagnosis Comments TISSUE EXAM Routine 05/09/2025 Elevated prostate specific antigen (PSA) documented in this encounter Results * Tissue Exam (05/09/2025) Final Diagnosis A. Prostate, Right Medial Base Biopsy: -BENIGN PROSTATE TISSUE B. Prostate, Right Medial Mid Biopsy: -BENIGN PROSTATE TISSUE C. Prostate, Right Medial Ramona Biopsy: -BENIGN PROSTATE TISSUE D. Prostate, Right Lateral Base Biopsy: -BENIGN PROSTATE TISSUE E. Prostate, Right Lateral Mid Biopsy: -BENIGN PROSTATE TISSUE F. Prostate, Right Lateral Ramona Biopsy: -BENIGN PROSTATE TISSUE G. Prostate, Left Medial Base Biopsy: -BENIGN PROSTATE TISSUE H. Prostate, Left Medial Mid Biopsy: -BENIGN PROSTATE TISSUE I. Prostate, Left Medial Ramona Biopsy: -BENIGN PROSTATE TISSUE J. Prostate, Left Lateral Base Biopsy: -BENIGN PROSTATE TISSUE K. Prostate, Left Lateral Mid Biopsy: -BENIGN PROSTATE TISSUE L. Prostate, Left Lateral Ramona Biopsy: -BENIGN PROSTATE TISSUE M. Prostate, Right Anterior TZ Biopsy: -BENIGN PROSTATE TISSUE 09/09/202 5 9:58 AM EDT [facility] at 0958 EDT Comment Clemencia Osorio) PIN4 suppor ts the diangnoses. 5 9:58 AM EDT [facility] Clinical Information Elevated PSA PSA: 3.4 [id number] 5 9:58 AM EDT [facility] Gross Description A. Prostate, Right Medial Base Biopsy: Received, properly labeled, are three H and E stained slides and two unstained slides. B. Prostate, Right Medial Mid Biopsy: Received, properly labeled, are three H and E stained slides and two unstained slides. C. Prostate, Right Medial Ramona Biopsy: Received, properly labeled, are three H and E stained slides and two unstained slides. D. Prostate, Right Lateral Base Biopsy: Received, properly labeled, are three H and E stained slides and two unstained slides. E. Prostate, Right Lateral Mid Biopsy: Received, properly labeled, are three H and E stained slides and two unstained slides. F. Prostate, Right Lateral Ramona Biopsy: Received, properly labeled, are three H and E stained slides and two unstained slides. G. Prostate, Left Medial Base Biopsy: Received, properly labeled, are three H and E stained slides and two unstained slides. H. Prostate, Left Medial Mid Biopsy: Received, properly labeled, are three H and E stained slides and two unstained slides. I. Prostate, Left Medial Ramona Biopsy: Received, properly labeled, are three H and E stained slides and two unstained slides. J. Prostate, Left Lateral Base Biopsy: Received, properly labeled, are three H and E stained slides and two unstained slides. K. Prostate, Left Lateral Mid Biopsy: Received, properly labeled, are three H and E stained slides and two unstained slides. L. Prostate, Left Lateral Ramona Biopsy: Received, properly labeled, are three H and E stained slides and two unstained slides. M. Prostate, Right Anterior TZ Biopsy: Received, properly labeled, are three H and E stained slides and two unstained slides. 5 9:58 AM EDT [facility] Disclaimer The immunohistochemistry stains were medically necessary and performed because additional information was needed by the pathologist to evaluate suspicious foci.. The immunohistochemical tests and in situ hybridization tests were developed and their performance characteristics were determined by [facility]. They have not been cleared or approved by the U.S. Food and Drug Administration. The FDA has determined that such clearance or approval is not necessary. These tests are used for clinical purposes. They should not be regarded as investigational or for research. This laboratory is certified under the Clinical Laboratory Improvement Amendments of 1988 (CLIA) as qualified to perform high complexity clinical laboratory testing. (controls appropriate) Unless otherwise specified, all tissue is 10% NB formalin fixed and paraffin embedded. Technical pathology services provided by [facility] at [address] [place] [address] (CLIA #[id number]/Alfredo Emery MD, [employer]) 9:[address] [facility] Tissue Prostate / Unknown 05/09/20252024 1:29 PM EDT Tissue specimen (specimen) Prostate / Unknown 05/09/2025 05/19/2025 1: 32 PM EDT Tissue specimen (specimen) Prostate / Unknown 05/09/2025 05/19/2025 1: 32 PM EDT Tissue specimen (specimen) Prostate / Unknown 05/09/2025 05/19/2025 1: 32 PM EDT Tissue specimen (specimen) Prostate / Unknown 05/09/2025 05/19/2025 1: 32 PM EDT Tissue specimen (specimen) Prostate / Unknown 05/09/2025 05/19/2025 1: 32 PM EDT Tissue specimen (specimen) Prostate / Unknown 05/09/2025 05/19/2025 1: 32 PM EDT Tissue specimen (specimen) Prostate / Unknown 05/09/2025 05/19/2025 1: 32 PM EDT Tissue specimen (specimen) Prostate / Unknown 05/09/2025 05/19/2025 1: 32 PM EDT Tissue specimen (specimen) Prostate / Unknown 05/09/2025 05/19/2025 1: 32 PM EDT Tissue specimen (specimen) Prostate / Unknown 05/09/2025 05/19/2025 1: 32 PM EDT Tissue specimen (specimen) Prostate / Unknown 05/09/2025 05/19/2025 1: 32 PM EDT Tissue specimen (specimen) Prostate / Unknown 05/09/2025 05/19/2025 1: 32 PM EDT us Kumar Merino MD LAB PATHOLOGY ORDERABLES Final R esult [facility] [address] [place] [address], documented in this encounter Visit Diagnoses Diagnosis Elevated prostate specific antigen (PSA) documented in this encounter Care Teams Nutrition Counselor Relationship Specialty Start Date End Date Jay Estes MD [address] [address] PCP - General Internal Medicine 12/13/24 documented as of this encounter
== END 2025-08-31 10:43 | disposition home or self-care (01) ==
LOC: HO.HKAS 10:29
PROVIDERS: PCP Internal Medicine; Visit Provider Internal Medicine Hypertension Specialist
DX: N18.9 Chronic kidney disease, unspecified (principal); I12.9 Hypertensive chronic kidney disease with stage 1 through stage 4 chronic kidney disease, or unspecified chronic kidney disease
CPT/HCPCS: 99214

== ENCOUNTER → 2025-08-31 10:29 | Outpatient (BNVA) | payer MEDICARE, SELFPAY | PROVIDERS: PCP Internal Medicine; Visit Provider Internal Medicine Hypertension Specialist | DX: N18.9 Chronic kidney disease, unspecified (principal); I12.9 Hypertensive chronic kidney disease with stage 1 through stage 4 chronic kidney disease, or unspecified chronic kidney disease | CPT/HCPCS: 99212 ==